=== PATIENT | male | born 1945 | race Two or more races ===

== ENCOUNTER 2017-02-05 19:39 | Inpatient (IN) | payer OTHER ==
[~2017-02-05] VITALS: Ht 172.7 cm; Wt 70.3 kg
[~2017-02-05 19:39] MED LIST: ASPI-807; ATEN-170
--- NOTE | 2017-02-05 19:59 | NUR ---
TO BED 4 A 71 YO MALE BB RA FROM HOME; ALTERED LOC SINCE 1200 TODAY. PATIENT IS AWAKE, ALERT, RESPONSIVE. VSS. NAD NOTED. BREATHING EVEN AND UNLABORED. NONDIAPHORETIC. ONGOING CARDIAC AND VS MONITORING. SAFETY AND COMFORT MEASURES RENDERED.
--- NOTE | 2017-02-05 20:00 | NUR ---
Started a saline lock on the left wrist g18, blood drawn and sent to lab.
--- NOTE | 2017-02-05 20:02 | NUR ---
DR SAGE AT BEDSIDE TO EVAL.
[2017-02-05 20:07] LABS: BASOPHILS % (AUTO) 0.3 % (0.0-2.0); EOSINOPHILS % (AUTO) 0.2 % (0.0-6.0); HEMATOCRIT 25 % (39-51); HEMOGLOBIN 8.6 g/dL (13.5-17.5); LYMPHOCYTES # (AUTO) 0.5 /CMM (0.8-4.8); LYMPHOCYTES % (AUTO) 15.9 % (20.0-44.0); MEAN CORPUSCULAR HEMOGLOBIN 29 PG (26.0-33.0); MEAN CORPUSCULAR HGB CONC 35 g/dl (31.0-36.0); MEAN CORPUSCULAR VOLUME 83 fL (80-96); MONOCYTES # (AUTO) 0.4 /CMM (0.1-1.30); MONOCYTES % (AUTO) 14.1 % (2.0-12.0); NEUTROPHILS % (AUTO) 69.5 % (43.0-81.0); PLATELET COUNT (AUTO) 69 /CMM (150-450); RDW COEFFICIENT OF VARIATION 19.1 (11.5-15.0); RED BLOOD CELL COUNT(AUTO) 3.01 MIL/uL (4.5-6.0); WHITE BLOOD COUNT (AUTO) 2.9 K/uL (4.3-11.0)
[2017-02-05 20:19] LABS: CALCIUM, SERUM 8.1 mg/dL (8.5-10.1); CARBON DIOXIDE 19 mmol/L (21-32); CHLORIDE 98 mmol/L (98-107); CREATININE 0.8 mg/dL (0.6-1.3); GLUCOSE 174 mg/dL (74-106); SODIUM SERUM 129 mmol/L (136-145); UREA NITROGEN, BLOOD 16 mg/dL (7-18)
[2017-02-05 20:25] LABS: ALANINE AMINOTRANSFERASE 10 U/L (12-78); ALKALINE PHOSPHATASE 61 U/L (46-116); ASPARTATE AMINOTRANSFERASE 24 U/L (15-37); BILIRUBIN,DIRECT 0.2 mg/dL (0.0-0.2); BILIRUBIN,TOTAL 0.6 mg/dL (0.2-1.0); TOTAL PROTEIN, SERUM 6.8 g/dL (6.4-8.2)
[2017-02-05 20:27] LABS: TROPONIN I 0.043 ng/mL (0.00-0.056)
[2017-02-05] MEDS ORDERED: IV NS 0.9% 500 ML BAG IV ONE (20:30)
[2017-02-05 20:33] LABS: THYROID STIMULATING HORMONE 0.374 uIU/mL (0.358-3.74)
[2017-02-05 21:05] LABS: BAND % (MANUAL) 2 % (0.0-5.0); LYMPHOCYTES % (MANUAL) 25 % (16-48); MONOCYTES % (MANUAL) 16 % (0-11.0); NEUTROPHILS % (MANUAL) 57 (42-76)
--- NOTE | 2017-02-05 21:13 | NUR ---
CRISTINA CARVALHO, RODRIGO MILLER GLORY HOLE TENDER
--- NOTE | 2017-02-05 21:14 | NUR ---
TELE 324-2
[2017-02-05 21:25] LABS: APPEARANCE,URINE Clear (CLEAR); BILIRUBIN,URINE Negative (NEGATIVE); BLOOD, URINE Moderate Ery/uL (NEGATIVE); COLOR,URINE Yellow (YELLOW); KETONES,URINE 15 (NEGATIVE); LEUKOCYTE ESTERASE ,URINE Negative (NEGATIVE); NITRITE, URINE Negative (NEGATIVE); PROTEIN,URINE Trace mg/dl (NEGATIVE); UGLUCOSE Negative (NEGATIVE); UROBILINOGEN,URINE 0.2 EU/dL (0.2)
[2017-02-05 21:40] LABS: BACTERIA,URINE None seen /HPF (None Seen); SQUAMOUS EPITHELIAL CELL,UR Rare /HPF (None Seen); WBC,URINE 0-2 /HPF (0-3)
[2017-02-05] MEDS ORDERED: PIPERACILLIN /TAZOBACTAM 3.375 G VIAL IV ONE (21:59)
[2017-02-05] MEDS ORDERED: VANCOMYCIN 1 GM in IV D5W 250 ML IV ONE ×2 (22:00→23:30)
[2017-02-05] MEDS ORDERED: PIPERACILLIN /TAZOBACTAM 3.375 G in IV D5W 50 ML IV ONE (22:00)
[2017-02-05] MEDS ORDERED: ASPI-605 PO (22:07)
[2017-02-05] MEDS ORDERED: FERR325T28 PO (22:07)
[2017-02-05] MEDS ORDERED: METF500T7 PO (22:07)
[2017-02-05] MEDS ORDERED: TAMS0.4C34 PO (22:07)
[2017-02-05] MEDS ORDERED: MECL-102 PO (22:07)
[2017-02-05] MEDS ORDERED: NADO20TA12 PO (22:07)
[2017-02-05] MEDS ORDERED: CLOP75TA2 PO (22:07)
[2017-02-05] MEDS ORDERED: FOLI1TAB16 PO (22:07)
--- NOTE | 2017-02-05 22:11 | NUR ---
REPORT GIVEN TO ERVIN CHIANG FOR NICOLA
[2017-02-05 22:30] VITALS: BP 114/62
--- NOTE | 2017-02-05 22:30 | NUR ---
MS CHIANG OPENING NOTES; RECEIVED PT FROM ED. PT IS ON 2LPM VIA NC AND IS SATURATING 89-91%. PT HAS IV ON L WRIST #18G AND IS PATENT AND INTACT AND HAS IV ON R AC AND IS PATENT AND INTACT WELL. 2 FAMILY MEMBERS AT BEDSIDE. WAITING FOR ADMISSION ORDERS AT THIS TIME. CALL LIGHT WITHIN PT'S REACH. URINAL AT BEDSIDE. INSTRUCTED PT HOW TO USE CALL LIGHT. BED KEPT IN LOW, LOCKED POSITION, AND SIDE RAILS X 2 UP. WILL CONTINUE TO MONITOR PT. Addendum: 02/06/17 at 0102 by DAVID RAJAN RN PT IS A/OX 2-3. PT SPEAKS/UNDERSTANDS A LITTLE BIT OF MALDIVIAN. Addendum: 02/06/17 at 0312 by DAVID RAJAN RN PT ALSO CONNECTED TO ZOSYN ANTIBIOTIC AND IS ONGOING. MARIIA SAID THAT VANCO WAS NOT ADMINISTERED IN ED SO WILL HAVE TO ADMINISTER UP HERE ON THE FLOOR. Addendum: 02/06/17 at 0734 by DAVID RAJAN RN PT REFUSES TO HAVE HIS LOWER EXTREMITIES CHECKED AND TO CHANGE IN A GOWN.
--- NOTE | 2017-02-05 22:39 | NUR ---
Transferred patient to tele bed 327-2 via als protcol, no incident noted. Endorsed to Vanessa CHIANG Vancomycin 1gm to be given as ordered by Dr Rivera. Family at bedside.
[2017-02-05] MEDS ORDERED: VANCOMYCIN 1 GM VIAL ONE (23:09)
[2017-02-05] MEDS ORDERED: ACETAMINOPHEN 325 MG TABLET PO PRN (23:30)
[2017-02-05] MEDS ORDERED: ONDANSETRON HCL/PF 4 MG/2 ML VIAL IVP PRN (23:30)
[2017-02-05] MEDS ORDERED: HYDROCODONE/APAP 5/325MG 1 EACH TABLET PO PRN (23:30)
[2017-02-05] MEDS ORDERED: ZOLPIDEM TARTRATE 5 MG TABLET PO PRN (23:30)
[2017-02-05] MEDS ORDERED: DEXTROSE 50%-WATER 50 ML DISP.SYRIN IV PRN (23:30)
[2017-02-05] MEDS ORDERED: MAG HYDROX/AL HYDROX/SIMETH 30 ML UDC PO PRN (23:30)
[2017-02-05] MEDS ORDERED: Z GUARD REMEDY 2 OZ OINT TP PRN (23:30)
[2017-02-06] MEDS: BLOOD SUGAR DIAGNOSTIC 1 EACH STRIP IN SCH ×5 (00:31→21:08)
--- NOTE | 2017-02-06 00:50 | NUR ---
MR CHIANG NOTES; TONY MILLER AT BEDSIDE.
--- NOTE | 2017-02-06 00:58 | NUR ---
MS RN NOTES; BLOOD SUGAR WAS 137 AND PT REFUSED INSULIN. PT IS NOT EATING AT THIS TIME AND IS JUST DRINKING WATER. WILL RECHECK BLOOD SUGAR AGAIN IN THE AM.
[2017-02-06] MEDS: IV NS 0.9% 1,000 ML IV PRN ×2 (03:30→21:02)
[2017-02-06] MEDS: INSULIN REGULAR, HUMAN 100 UNIT/ML 3 ML VIAL SQ PRN (06:25)
--- NOTE | 2017-02-06 06:25 | NUR ---
MS RN NOTES; BLOOD SUGAR THIS AM WAS 99. NO INSULIN WAS ADMINISTERED. WILL CONTINUE TO MONITOR PT.
--- NOTE | 2017-02-06 07:14 | NUR ---
MS RN CLOSING NOTES: ALL NEEDS WERE ATTENDED AND ANTICIPATED FOR. PT IS ON 2LPM VIA NC AND IS TOLERATING WELL. HOB KEPT ELEVATED. PT HAS IV ON L WRIST #18G AND IS BEING INFUSED WITH NS AT 75ML/HR. PT ALSO HAS IV ON R AC AND IS PATENT AND INTACT WELL; CURRENTLY S/L. CALL LIGHT WITHIN PT'S REACH. URINAL AND BEDSIDE COMMODE AT BEDSIDE. INSTRUCTED PT TO USE CALL LIGHT FOR ASSISTANCE. BED KEPT IN LOW, LOCKED POSITION, AND SIDE RAILS X 2 UP. WILL ENDORSE TO AM NURSE FOR NICOLA.
[2017-02-06] MEDS ORDERED: BLOOD SUGAR DIAGNOSTIC 1 EACH STRIP IN SCH (07:30)
--- NOTE | 2017-02-06 07:30 | NUR ---
RN OPENING NOTES RECEIVED PATIENT IN BED RESTING. A/O X 3. ON 2LPM O2 VIA NASAL CANULA, TOLERATING WELL, KEPT HOB ELEVATED. NO ACUTE DISTRESS, NO SOB NOTED. IV SITE INTACT AND PATENT, INFUSING FLUIDS WELL. URINAL AND BEDSIDE COMMODE AT BEDSIDE. BED IN LOW, LOCKED, SIDERAILS UPX2. CALL LIGHT IN REACH. WILL CONTINUE TO MONITOR ACCORDINGLY.
[2017-02-06 08:00] VITALS: BP 134/57
[2017-02-06 08:14] LABS: CALCIUM, SERUM 7.9 mg/dL (8.5-10.1); CARBON DIOXIDE 22 mmol/L (21-32); CHLORIDE 106 mmol/L (98-107); CREATININE 0.8 mg/dL (0.6-1.3); GLUCOSE 99 mg/dL (74-106); MAGNESIUM 2.1 mg/dL (1.8-2.4); PHOSPHORUS 2.8 mg/dL (2.5-4.9); POTASSIUM 3.9 mmol/L (3.5-5.1); SODIUM SERUM 135 mmol/L (136-145); UREA NITROGEN, BLOOD 13 mg/dL (7-18)
[2017-02-06 08:15] VITALS: BP 134/57
[2017-02-06 08:19] LABS: CHOLESTEROL 118 mg/dL (<200); HDL CHOLESTEROL 29 mg/dL (40-60); LDL 79 mg/dL (0-99); TRIGLYCERIDES 101 mg/dL (30-150)
[2017-02-06 08:34] LABS: BASOPHILS % (AUTO) 0.1 % (0.0-2.0); EOSINOPHILS % (AUTO) 0.2 % (0.0-6.0); HEMATOCRIT 23 % (39-51); HEMOGLOBIN 7.9 g/dL (13.5-17.5); LYMPHOCYTES # (AUTO) 0.6 /CMM (0.8-4.8); LYMPHOCYTES % (AUTO) 23.5 % (20.0-44.0); MEAN CORPUSCULAR HEMOGLOBIN 29 PG (26.0-33.0); MEAN CORPUSCULAR HGB CONC 35 g/dl (31.0-36.0); MEAN CORPUSCULAR VOLUME 83 fL (80-96); MONOCYTES # (AUTO) 0.4 /CMM (0.1-1.30); MONOCYTES % (AUTO) 17.5 % (2.0-12.0); NEUTROPHILS # (AUTO) 1.4 /CMM (1.8-8.9); NEUTROPHILS % (AUTO) 58.7 % (43.0-81.0); PLATELET COUNT (AUTO) 53 /CMM (150-450); RDW COEFFICIENT OF VARIATION 20.1 (11.5-15.0); RED BLOOD CELL COUNT(AUTO) 2.73 MIL/uL (4.5-6.0); WHITE BLOOD COUNT (AUTO) 2.4 K/uL (4.3-11.0)
[2017-02-06] MEDS ORDERED: TAMSULOSIN 0.4 MG CAP.SR.24H PO SCH (09:00)
[2017-02-06] MEDS ORDERED: ASPIRIN EC 81 MG TABLET.DR PO SCH (09:00)
[2017-02-06] MEDS ORDERED: CLOPIDOGREL BISULFATE 75 MG TABLET PO SCH (09:00)
[2017-02-06 09:18] LABS: BAND % (MANUAL) 1 % (0.0-5.0); LYMPHOCYTES % (MANUAL) 25 % (16-48); MONOCYTES % (MANUAL) 10 % (0-11.0); NEUTROPHILS % (MANUAL) 64 (42-76)
[2017-02-06] MEDS: MECLIZINE HCL 25 MG TABLET PO SCH ×2 (09:23→17:34)
[2017-02-06] MEDS: FOLIC ACID 1 MG TABLET PO SCH (09:23)
[2017-02-06] MEDS: FERROUS SULFATE (325 MG) 325 MG/TAB TABLET PO SCH (09:23)
[2017-02-06] MEDS: METFORMIN XR 500 MG TAB.SR.24H PO SCH (09:23)
--- NOTE | 2017-02-06 13:00 | NUR ---
RN NOTES IV SITE ON LEFT WRIST LEAKING, DISCONTINUED IV SITE, NO REDNESS, NO SWELLING, NO BLEEDING. STARTED NEW IV ON RIGHT HAND GAUGE 22, INTACT AND PATENT, INFUSING FLUIDS WELL. WILL MONITOR ACCORDINGLY.
--- NOTE | 2017-02-06 15:30 | NUR ---
RN NOTES DR CARNEY AND DR CORONA ON BEDSIDE. MD MADE AWARE OF PATIENT'S COMPLAIN OF BLOOD IN SPUTUM AND BRUISING. PER MD, HOLD PLAVIX AND ASA. WILL CONTINUE TO MONITOR ACCORDINGLY
[2017-02-06 16:00] VITALS: BP 110/53
--- NOTE | 2017-02-06 19:15 | NUR ---
RN OPEN NOTES RECEIVED PATIENT AWAKE IN BED. A/O X3. NO SIGNS OF DISTRESS OR DISCOMFORT. BREATHING EVEN AND UNLABORED. ON 2LPM O2 VIA NC. IV ACCESS IN R HAND WITH NS INFUSING, PATENT AND INTACT, NO SIGNS OF REDNESS OR INFILTRATION. BED IN LOW LOCKED POSITION WITH SIDE RAILS X2. CALL LIGHT WITHIN REACH. WILL CONTINUE TO MONITOR.
--- NOTE | 2017-02-06 19:20 | NUR ---
RN CLOSING NOTES PATIENT IN BED RESTING, HOB ELEVATED AT ALL TIMES. NO ACUTE DISTRESS, NO SOB NOTED. ALL NEEDS ATTENDED AND PROVIDED. KEPT PATIENT SAFE AND COMFORTABLE. BED IN LOCKED, LOW POSITION, SIDERAILS UP X2, CALL LIGHT IN REACH. ENDORSED PATIENT TO NIGHT RN FOR NICOLA.
[2017-02-06 20:00] VITALS: BP 137/58
[2017-02-07] MEDS: BLOOD SUGAR DIAGNOSTIC 1 EACH STRIP IN SCH ×4 (06:24→21:20)
--- NOTE | 2017-02-07 06:57 | NUR ---
RN CLOSING NOTES PATIENT AWAKE IN BED. A/O X3. NO SIGNS OF DISTRESS OR DISCOMFORT. BREATHING EVEN AND UNLABORED. ON 2LPM O2 VIA NC. IV ACCESS IN R HAND WITH NS INFUSING, PATENT AND INTACT, NO SIGNS OF REDNESS OR INFILTRATION. ALL NEEDS MET. NO SIGNIFICANT CHANGES THROUGH THE NIGHT. BED IN LOW LOCKED POSITION WITH SIDE RAILS X2. CALL LIGHT WITHIN REACH. WILL ENDORSE TO AM SHIFT FOR NICOLA.
--- NOTE | 2017-02-07 07:37 | NUR ---
MS RN OPENING NOTE PATIENT IS ALERT AND ORIENTED x3. NO PAIN AT THIS TIME. NO SOB OR DISTRESS NOTED. CALL LIGHT WITHIN REACH. SAFETY MEASURES IMPLEMENTED. ABLE TO COMMUNICATE NEEDS. HAS BEDSIDE COMMODE AND URINAL BY BEDSIDE. BLOOD SUGARS TO BE MONITORED THROUGHOUT SHIFT. ON 2L/MIN OF OXYGEN VIA NASAL CANNULA. IV ON RIGHT HAND INTACT AND PATENT FLUIDS RUNNING AT 75 ML/HR TOLERATING WELL. WILL CONTINUE TO MONITOR
[2017-02-07 07:51] LABS: BASOPHILS % (AUTO) 0.5 % (0.0-2.0); EOSINOPHILS % (AUTO) 0.1 % (0.0-6.0); HEMATOCRIT 23 % (39-51); HEMOGLOBIN 7.8 g/dL (13.5-17.5); LYMPHOCYTES # (AUTO) 0.5 /CMM (0.8-4.8); LYMPHOCYTES % (AUTO) 32.3 % (20.0-44.0); MEAN CORPUSCULAR HEMOGLOBIN 28 PG (26.0-33.0); MEAN CORPUSCULAR HGB CONC 34 g/dl (31.0-36.0); MEAN CORPUSCULAR VOLUME 83 fL (80-96); MONOCYTES # (AUTO) 0.4 /CMM (0.1-1.30); MONOCYTES % (AUTO) 25.1 % (2.0-12.0); NEUTROPHILS # (AUTO) 0.7 /CMM (1.8-8.9); RDW COEFFICIENT OF VARIATION 20.4 (11.5-15.0); RED BLOOD CELL COUNT(AUTO) 2.74 MIL/uL (4.5-6.0)
[2017-02-07 07:59] LABS: WHITE BLOOD COUNT (AUTO) 1.6 K/uL (4.3-11.0)
[2017-02-07 08:00] VITALS: BP 123/67
[2017-02-07 08:00] LABS: PLATELET COUNT (AUTO) 36 /CMM (150-450)
[2017-02-07 08:10] LABS: CALCIUM, SERUM 8.2 mg/dL (8.5-10.1); CARBON DIOXIDE 25 mmol/L (21-32); CHLORIDE 106 mmol/L (98-107); CREATININE 0.8 mg/dL (0.6-1.3); GLUCOSE 93 mg/dL (74-106); MAGNESIUM 1.9 mg/dL (1.8-2.4); PHOSPHORUS 2.5 mg/dL (2.5-4.9); POTASSIUM 3.9 mmol/L (3.5-5.1); SODIUM SERUM 138 mmol/L (136-145); UREA NITROGEN, BLOOD 12 mg/dL (7-18)
[2017-02-07] MEDS: FOLIC ACID 1 MG TABLET PO SCH (08:27)
[2017-02-07] MEDS: FERROUS SULFATE (325 MG) 325 MG/TAB TABLET PO SCH (08:27)
[2017-02-07] MEDS: MECLIZINE HCL 25 MG TABLET PO SCH ×2 (08:27→16:29)
[2017-02-07] MEDS: METFORMIN XR 500 MG TAB.SR.24H PO SCH (08:27)
[2017-02-07] MEDS: LOSARTAN POTASSIUM 50 MG TABLET PO SCH (08:28)
[2017-02-07] MEDS: CARVEDILOL 3.125 MG TABLET PO SCH ×2 (08:28→20:02)
[2017-02-07 09:26] LABS: LYMPHOCYTES % (MANUAL) 34 % (16-48); MONOCYTES % (MANUAL) 21 % (0-11.0); NEUTROPHILS % (MANUAL) 45 (42-76)
--- NOTE | 2017-02-07 10:06 | NUR ---
MS RN NOTE PER PHYSICAL THERAPY, PATIENT NEEDS WALKER, BEDSIDE COMMODE, AND HOME PT. NOTIFIED SOURCE WATER PROTECTION SPECIALIST
[2017-02-07] MEDS ORDERED: TBO-FILGRASTIM 300 MCG/0.5 ML SYRINGE SQ SCH (10:30)
[2017-02-07] MEDS ORDERED: TBO-FILGRASTIM 480 MCG/0.8 ML ML SQ SCH (11:00)
[2017-02-07] MEDS: IV NS 0.9% 1,000 ML IV PRN ×2 (15:11→23:31)
[2017-02-07 16:00] VITALS: BP 95/70
--- NOTE | 2017-02-07 18:13 | NUR ---
MS RN NOTE PATIENT STATED THAT HE WAS HAVING CHEST PAIN. ASSESSED PATIENT AND CHECKED VITALS. BLOOD PRESSURE LOW. SAT PATIENT UP TO SEE IF CHEST PAIN WOULD GET BETTER, PATIENT SAID ITS ABOUT THE SAME. ORDERED STAT EKG, NORMAL SINUS RHYTHM, NOTIFIED MD AND AWAITING FOR ORDERS. PATIENTLY CURRENTLY ON MONITOR. WILL REASSESS PATIENT AND ENDORSE TO CERTIFIED MEDICAL TECHNICIAN ASSISTANT NURSE
--- NOTE | 2017-02-07 18:41 | NUR ---
MS RN CLOSING NOTE PATIENT IS ALERT AND ORIENTED x3. NO PAIN AT THIS TIME. NO SOB OR DISTRESS NOTED. 2L/MIN OF OXYGEN VIA NASAL CANNULA. MONITORING CHEST PAIN, AWAITING ORDERS FROM MD. PATIENT HAS IV FLUIDS RUNNING AT THIS TIME, IV ON RIGHT HAND INTACT AND PATENT, FLUSHES WELL. ABLE TO COMMUNICATE NEEDS, DAUGHTER AND AT BEDSIDE FOR HELP. NEUTROPENIC DIET IN PLACE. BLOOD SUGARS MONITORED THROUGHOUT SHIFT. WALKER AND BEDSIDE COMMODE DELIVERED AND AT BEDSIDE. WILL ENDORSE TO INSURANCE OFFICE MANAGER NURSE FOR CHANGE OF CONDITION.
--- NOTE | 2017-02-07 19:20 | NUR ---
ms/rn opening notes PATIENT IN BED, HOB ELEVATED W/ 3 PILLOWS, FAMILY AT BED SIDE. ON OXYGEN VIA NC AT 3L. MONITORING FOR BLOOD PRESSURE LOW AND WILL CHECK FOR ANY CHANGES. RECEIVED REPORT FORM AM RN REGARDING PAATIENT CONDITION AND WILL CONTINUE MONITORING.RE CHECK MANUAL B/P AT 90/40. PATIENT ALERT X2. CAN FOLLOW SIMPLE COMMANDS AND COOPERATIVE TO CARE.
[2017-02-07 20:00] VITALS: BP 88/46
[2017-02-07] MEDS: TAMSULOSIN 0.4 MG CAP.SR.24H PO SCH (21:08)
--- NOTE | 2017-02-07 21:27 | NUR ---
NS/RN NOTES MD CONTACTED REGARDING LOW B/P AT 88/46, PATIENT ALERT, ORIENTED X3, O2 SAT AT 97 AT 3L VIA NC. NO NEW ORDER BUT CONTINUE MONITORING.
[2017-02-08] VITALS (8 sets, daily range): BP systolic 90–108; BP diastolic 48–58
--- NOTE | 2017-02-08 06:39 | NUR ---
MS/RN CLOSING NOTES PATIENT IN HOB ELEVATED, ALERT, ORIENTED X3, ABLE TO VERBALIZE NEEDS AND ASSISTED TO BEDSIDE COMMODE, VERBALIZED IMPROVE CONDITION. NO PAIN VERBALIZED, SKIN WARM TO TOUCH. ABLE TO SLEEP DURING THE NIGHTS, WILL CONTINUE TO MONITOR,
[2017-02-08 07:28] LABS: BASOPHILS % (AUTO) 0.2 % (0.0-2.0); HEMOGLOBIN 7.1 g/dL (13.5-17.5); LYMPHOCYTES # (AUTO) 0.6 /CMM (0.8-4.8); LYMPHOCYTES % (AUTO) 9.5 % (20.0-44.0); MEAN CORPUSCULAR HEMOGLOBIN 29 PG (26.0-33.0); MEAN CORPUSCULAR HGB CONC 35 g/dl (31.0-36.0); MEAN CORPUSCULAR VOLUME 83 fL (80-96); MONOCYTES # (AUTO) 0.6 /CMM (0.1-1.30); MONOCYTES % (AUTO) 9.3 % (2.0-12.0); RDW COEFFICIENT OF VARIATION 19.6 (11.5-15.0); RED BLOOD CELL COUNT(AUTO) 2.43 MIL/uL (4.5-6.0); WHITE BLOOD COUNT (AUTO) 6.2 K/uL (4.3-11.0)
[2017-02-08 07:32] LABS: HEMATOCRIT 20 % (39-51)
[2017-02-08 07:40] LABS: PLATELET COUNT (AUTO) 25 /CMM (150-450)
--- NOTE | 2017-02-08 07:40 | NUR ---
MS RN OPENING NOTE PATIENT IS ALERT AND ORIENTED x3. NO PAIN AT THIS TIME. NO SOB OR DISTRESS NOTED. CALL LIGHT WITHIN REACH. SAFETY MEASURES IMPLEMENTED. ABLE TO COMMUNICATE NEEDS. HAS BEDSIDE COMMODE AND WALKER THAT WAS DELIVERED YESTERDAY BY BEDSIDE. HAS IV ON RIGHT HAND INTACT AND PATENT NO REDNESS OR SWELLING NOTED. IV FLUIDS RUNNING AT 75 ML/HR, TOLERATING WELL. BLOOD SUGARS TO BE MONITORED. WILL CONTINUE TO MONITOR THROUGHOUT SHIFT Addendum: 02/08/17 at 0856 by SUMANTH LERNER RN ON 2L/MIN OF OXYGEN VIA NASAL CANNULA, TOLERATING WELL.
[2017-02-08 07:42] LABS: INR 1.17 (0.87-1.13); PROTHROMBIN TIME 12.2 SECS (9.5-12.7)
--- NOTE | 2017-02-08 07:47 | NUR ---
MS RN NOTE RECEIVED CALL FROM LAB, PATIENT HAS CRITICAL LAB FOR PLT COUNT-[id number]. AWARE
[2017-02-08 07:58] LABS: CALCIUM, SERUM 7.8 mg/dL (8.5-10.1); CARBON DIOXIDE 22 mmol/L (21-32); CHLORIDE 105 mmol/L (98-107); CREATININE 0.8 mg/dL (0.6-1.3); GLUCOSE 97 mg/dL (74-106); MAGNESIUM 1.9 mg/dL (1.8-2.4); PHOSPHORUS 3.2 mg/dL (2.5-4.9); POTASSIUM 3.9 mmol/L (3.5-5.1); SODIUM SERUM 135 mmol/L (136-145); UREA NITROGEN, BLOOD 12 mg/dL (7-18)
[2017-02-08 08:22] LABS: BAND % (MANUAL) 15 % (0.0-5.0); LYMPHOCYTES % (MANUAL) 7 % (16-48); METAMYELOCYTES % 1 % (0-0); MONOCYTES % (MANUAL) 2 % (0-11.0); NEUTROPHILS % (MANUAL) 75 (42-76)
[2017-02-08] MEDS: CARVEDILOL 3.125 MG TABLET PO SCH ×2 (08:26→20:47)
[2017-02-08] MEDS: METFORMIN XR 500 MG TAB.SR.24H PO SCH (08:26)
[2017-02-08] MEDS: FOLIC ACID 1 MG TABLET PO SCH (08:26)
[2017-02-08] MEDS: FERROUS SULFATE (325 MG) 325 MG/TAB TABLET PO SCH (08:26)
[2017-02-08] MEDS: LOSARTAN POTASSIUM 50 MG TABLET PO SCH (08:26)
[2017-02-08] MEDS: BLOOD SUGAR DIAGNOSTIC 1 EACH STRIP IN SCH ×4 (08:26→20:54)
[2017-02-08] MEDS: MECLIZINE HCL 25 MG TABLET PO SCH ×2 (08:26→16:41)
--- NOTE | 2017-02-08 13:50 | NUR ---
MS RN NOTE PATIENT IS TO RECEIVE ONE UNIT OF BLOOD. RECEIVED CONSENT FROM DAUGHTER TONY WITH ANOTHER NURSE, EXPLAINED RISKS AND BENEFITS OF TRANSFUSION AND ALSO RECEIVED CONSENT. AWAITING FOR TYPE AND CROSS MATCH. WILL GIVE BLOOD WHEN READY
[2017-02-08] MEDS ORDERED: diphenhydrAMINE HCL 50 MG/ML VIAL IV ONE (14:00)
--- NOTE | 2017-02-08 18:41 | NUR ---
MS RN CLOSING NOTE PATIENT IS ALERT AND ORIENTED x3. NO PAIN AT THIS TIME. NO SOB OR DISTRESS NOTED. 2L/MIN OF OXYGEN VIA NASAL CANNULA. ABLE TO COMMUNICATE NEEDS. AT BEDSIDE. HAS BSC AND AMBULATES WITH WALKER WITH STANDBY ASSIST. IV ON RIGHT HAND AND LEFT FOREARM INTACT AND PATENT NO REDNESS OR SWELLING NOTED. S/P BLOOD TRANSFUSION 1 UNIT GIVEN. NO ADVERSE REACTION NOTED OR STATED. ALL DUE MEDICATIONS GIVEN ORDERED BY MD. CALL LIGHT WITHIN REACH AT ALL TIMES. SAFETY MEASURES IMPLEMENTED. WILL ENDORSE TO JUNCTION MAKER NURSE FOR NICOLA
[2017-02-08] MEDS: FUROSEMIDE 20 MG/2 ML VIAL IV PRN ×2 (18:44→18:54)
[2017-02-08] MEDS: IV NS 0.9% 1,000 ML IV PRN (18:54)
--- NOTE | 2017-02-08 19:23 | NUR ---
MS/RN OPENING NOTES PATIENT AWAKE, ALERT, ABLE TO DO W/ ASSISTANCE SOME ADL ,FAMILY AT BEDSIDE. AM RN HAVE PROVIDE MEDICATION S/P BLOOD TRANSFUSION OF LASIX AND WILL MONITOR FOR S/P 1 UNIT PRBC TRANSFUSED THIS PM. SKIN INTACT AND DRY. WILL CONTINUE TO MONITOR.
[2017-02-08] MEDS: TAMSULOSIN 0.4 MG CAP.SR.24H PO SCH (21:01)
[2017-02-09] MEDS: BLOOD SUGAR DIAGNOSTIC 1 EACH STRIP IN SCH ×4 (07:01→20:06)
--- NOTE | 2017-02-09 07:05 | NUR ---
s/rn notes Patient able to sleep during the night. Respirations even and unlabored. Cooperative to care. Calllights within reach. bed in lock position. patient uses commode and had s/p blood transfusion. Monitoring for any s/s of chnages,
--- NOTE | 2017-02-09 07:43 | NUR ---
MS RN: INITIAL NOTE RECEIVED PT A/OX3. ON 2L NC. NO SOB NOTED. NO PAIN NOTED. NO DISTRESS NOTED. USES BEDSIDE COMMODE. AMBULATES WITH ASSISTANCE. [facility]. R HAND #22 RUNNING NS AT 40ML/HR. SITE CLEAR AND PATENT. RESTING COMFORTABLY IN BED. CALL LIGHT WITHIN REACH.
[2017-02-09 07:58] LABS: BASOPHILS % (AUTO) 0.3 % (0.0-2.0); EOSINOPHILS % (AUTO) 0.2 % (0.0-6.0); HEMATOCRIT 25 % (39-51); HEMOGLOBIN 8.7 g/dL (13.5-17.5); LYMPHOCYTES # (AUTO) 0.6 /CMM (0.8-4.8); MEAN CORPUSCULAR HEMOGLOBIN 30 PG (26.0-33.0); MEAN CORPUSCULAR HGB CONC 35 g/dl (31.0-36.0); MEAN CORPUSCULAR VOLUME 85 fL (80-96); MONOCYTES # (AUTO) 0.5 /CMM (0.1-1.30); MONOCYTES % (AUTO) 7.7 % (2.0-12.0); NEUTROPHILS # (AUTO) 4.9 /CMM (1.8-8.9); NEUTROPHILS % (AUTO) 81.8 % (43.0-81.0); RDW COEFFICIENT OF VARIATION 19.4 (11.5-15.0); RED BLOOD CELL COUNT(AUTO) 2.95 MIL/uL (4.5-6.0)
[2017-02-09 08:00] VITALS: BP 103/59
[2017-02-09] MEDS: FOLIC ACID 1 MG TABLET PO SCH (08:12)
[2017-02-09] MEDS: METFORMIN XR 500 MG TAB.SR.24H PO SCH (08:12)
[2017-02-09] MEDS: MECLIZINE HCL 25 MG TABLET PO SCH ×2 (08:12→17:19)
[2017-02-09] MEDS: FERROUS SULFATE (325 MG) 325 MG/TAB TABLET PO SCH (08:12)
[2017-02-09] MEDS: LOSARTAN POTASSIUM 50 MG TABLET PO SCH (08:12)
[2017-02-09 08:13] LABS: CALCIUM, SERUM 8.1 mg/dL (8.5-10.1); CARBON DIOXIDE 25 mmol/L (21-32); CHLORIDE 106 mmol/L (98-107); CREATININE 0.9 mg/dL (0.6-1.3); GLUCOSE 95 mg/dL (74-106); PHOSPHORUS 3.1 mg/dL (2.5-4.9); POTASSIUM 3.8 mmol/L (3.5-5.1); SODIUM SERUM 138 mmol/L (136-145); UREA NITROGEN, BLOOD 8 mg/dL (7-18)
[2017-02-09] MEDS: CARVEDILOL 3.125 MG TABLET PO SCH ×2 (08:13→20:05)
[2017-02-09 08:21] LABS: PLATELET COUNT (AUTO) 25 /CMM (150-450)
[2017-02-09 09:22] LABS: BAND % (MANUAL) 2 % (0.0-5.0); LYMPHOCYTES % (MANUAL) 9 % (16-48); MONOCYTES % (MANUAL) 8 % (0-11.0); NEUTROPHILS % (MANUAL) 81 (42-76)
--- NOTE | 2017-02-09 18:52 | NUR ---
MS RN: CLOSING NOTE A/OX3. ON 2 L NC SATING AT 98%. NO DISTRESS NOTED. NO PAIN NOTED. TOOK ALL MEDICATIONS ON TIME. NO ADVERSE REACTIONS NOTED. R HAND #22 IV RUNNING NS AT 40ML/HR . L FA IV HEP LOCK. IV SITE PATENT. ON [facility] DIET. USES BEDSIDE COMMODE. AMBULATED WITH MINIMAL ASSIST. RESTING COMFORTABLY IN BED. CALL LIGHT WITHIN REACH.
--- NOTE | 2017-02-09 19:50 | NUR ---
RN INITIAL NOTES: RECEIVED REPORT FROM FERNANDA RN, PT IN BED, AWAKE, A/O X3 SINHALA SPEAKING, UNDERSTAND BASIC TONGAN, ON 2LVIA NC RESPIRATION EVEN AND UNLABORED, DENIES ANY PAIN OR DISCOMFORT AT THIS TIME, IV ACCESS PATENT AND FLUSHING WELL, INFUSING WITH NS AT 40ML/HR. SAFETY PRECAUTIONS FOR FALL INITIATED CALL LIGHT IN REACH, WILL CONTINUE TO MONITOR
[2017-02-09] MEDS: IV NS 0.9% 1,000 ML IV PRN (19:58)
[2017-02-09 20:00] VITALS: BP 109/59
[2017-02-09] MEDS: TAMSULOSIN 0.4 MG CAP.SR.24H PO SCH (20:03)
[2017-02-09] MEDS: INSULIN REGULAR, HUMAN 100 UNIT/ML 3 ML VIAL SQ PRN (20:06)
--- NOTE | 2017-02-09 20:07 | NUR ---
RN NOTES: PT REQUESTED TO TAKE ALL HIS MEDICATION EARLY HE STATED HE WILL SLEEP EARLY BEFORE 2100, PT FLOMAX ADMINISTERED, COREG HELD DUE TO LOW BP, AND PT ALSO REFUSED FOR IT HE STATED ACCORDING TO THE DOCTOR HE WAS TOLD THAT THE BP MEDS ARE TAKEN OFF HIS LIST HIS BP ALWAYS ON LOW SIDE, EXPLAIN TO THE PT ABOUT THE PARAMETER OON THE EMAR, PT UNDERSTAND, I TALKED TO PT'S DAUGHTER TO EXPLAIN ABOUT THE COREG AND PARAMETER, AND THEY DECIDED NOT TO TAKE THE MEDICINE THEY CONSIDERED THE BP ALREADY ON LOW SIDE, ALSO CHECKED PT'S BLOOD SUGAR AND REVEAL 99, NO INSULIN COVERAGE GIVEN PER SLIDING SCALE, WILL MONITOR FOR ANY S/S OF HYPOGLYCEMIA
[2017-02-09 20:17] VITALS: BP 109/59
[2017-02-10] MEDS: INSULIN REGULAR, HUMAN 100 UNIT/ML 3 ML VIAL SQ PRN (06:21)
[2017-02-10] MEDS: BLOOD SUGAR DIAGNOSTIC 1 EACH STRIP IN SCH ×2 (06:21→12:00)
--- NOTE | 2017-02-10 06:22 | NUR ---
ACCU CHECK: BLOOD SUGAR CHECK AND REVEAL 89, NO INSULIN COVERAGE GIVEN PER SLIDING SCALE, WILL CONTINUE MONITORING PT FOR ANY S/S OF HYPER OR HYPOGLYCEMIA
--- NOTE | 2017-02-10 06:44 | NUR ---
RN CLOSING NOTES: PT IN BED, AWAKE, REMAINS A/O X3, ON 2L VIA NC, RESPIRATION EVEN AND UNLABORED, DENIES ANY PAIN OR DISCOMFORT. IV ACCESS REMAINS PATENT AND FLUSHING WELL, INFUSING WITH NS AT 40ML/HR. FOR DC PLANNING. EXIT CARE COMPLETED. VS REMAINS STABLE, NEEDS ATTENDED, WILL ENDORSE TO DAY RN FOR NICOLA.
--- NOTE | 2017-02-10 07:45 | NUR ---
MS RN: INITIAL NOTE RECEIVED PT A/OX3. ON 2L NC SATING AT 92%. NO DISTRESS NOTED. NO PAIN NOTED. NO SOB NOTED. AMBULATORY WITH MINIMAL ASSIST. USES BEDSIDE COMMODE. R HAND #22 RUNNING NS AT 40ML/HR. SITE CLEAR AND PATENT. L FA #20 HEP LOCK. RESTING COMFORTABLY IN BED. CALL LIGHT WITHIN REACH.
[2017-02-10 08:00] VITALS: BP 98/68
[2017-02-10 08:35] VITALS: BP 98/68
[2017-02-10] MEDS: MECLIZINE HCL 25 MG TABLET PO SCH (08:35)
[2017-02-10] MEDS: FOLIC ACID 1 MG TABLET PO SCH (08:35)
[2017-02-10] MEDS: CARVEDILOL 3.125 MG TABLET PO SCH (08:35)
[2017-02-10] MEDS: FERROUS SULFATE (325 MG) 325 MG/TAB TABLET PO SCH (08:35)
[2017-02-10] MEDS: LOSARTAN POTASSIUM 50 MG TABLET PO SCH (08:35)
[2017-02-10] MEDS: METFORMIN XR 500 MG TAB.SR.24H PO SCH (08:35)
[2017-02-10 09:20] LABS: BASOPHILS % (AUTO) 0.1 % (0.0-2.0); HEMATOCRIT 24 % (39-51); HEMOGLOBIN 8.2 g/dL (13.5-17.5); LYMPHOCYTES # (AUTO) 0.7 /CMM (0.8-4.8); LYMPHOCYTES % (AUTO) 20.3 % (20.0-44.0); MEAN CORPUSCULAR HEMOGLOBIN 29 PG (26.0-33.0); MEAN CORPUSCULAR HGB CONC 34 g/dl (31.0-36.0); MEAN CORPUSCULAR VOLUME 85 fL (80-96); MONOCYTES # (AUTO) 0.5 /CMM (0.1-1.30); MONOCYTES % (AUTO) 14.2 % (2.0-12.0); NEUTROPHILS # (AUTO) 2.1 /CMM (1.8-8.9); NEUTROPHILS % (AUTO) 65.4 % (43.0-81.0); RDW COEFFICIENT OF VARIATION 19.6 (11.5-15.0); RED BLOOD CELL COUNT(AUTO) 2.85 MIL/uL (4.5-6.0); WHITE BLOOD COUNT (AUTO) 3.3 K/uL (4.3-11.0)
[2017-02-10 09:29] LABS: PLATELET COUNT (AUTO) 33 /CMM (150-450)
[2017-02-10 09:42] LABS: BAND % (MANUAL) 4 % (0.0-5.0); LYMPHOCYTES % (MANUAL) 22 % (16-48); MONOCYTES % (MANUAL) 12 % (0-11.0); NEUTROPHILS % (MANUAL) 62 (42-76)
--- NOTE | 2017-02-10 14:16 | NUR ---
MS RN: DISCHARGE NOTE PT D/C HOME WITH [facility] FOR IV FLUIDS. PT TOOK ALL MEDICATIONS ON TIME. NO ADVERSE REACTIONS NOTED. NO PAIN NOTED. NO SOB NOTED. VS STABLE UPON D/C. ON ROOM AIR SATING AT 94%. PICTURES TAKEN OF NECK REDNESS AND L/ R BLE BRUISES. R HAND IV AND L FA IV REMOVED. SITE CLEAR. NO REDNESS OR INFILTRATION NOTED. ALL D/C INFORMATION PROVIDED TO DAUGHTER TONY AND PATIENT. ALL D/C PAPERS SIGNED AND COPIES PROVIDED TO FAMILY. ALL BELONGINGS ACCOUNTED FOR. LEFT ON WHEELCHAIR VIA PRIVATE CAR.
[2017-02-11] MEDS ORDERED: CLOPIDOGREL BISULFATE 75 MG TABLET ONE (13:35)
== END 2017-02-10 14:10 | disposition home health service (06) | DRG 52 ==
LOC: ER 19:41 → TELE 21:44 → MED 02-06 00:28
PROVIDERS: ADMIT Nurse Practitioner Acute Care; ATTEND Nurse Practitioner Acute Care
PROC: 30233N1 Transfusion of Nonautologous Red Blood Cells into Peripheral Vein, Percutaneous Approach (ICD-10-PCS; principal; 2017-02-08)
DX: G92 Toxic encephalopathy (principal); E44.0 Moderate protein-calorie malnutrition; D61.810 Antineoplastic chemotherapy induced pancytopenia; E86.0 Dehydration; C34.90 Malignant neoplasm of unspecified part of unspecified bronchus or lung; E87.1 Hypo-osmolality and hyponatremia; E88.09 Other disorders of plasma-protein metabolism, not elsewhere classified; D69.59 Other secondary thrombocytopenia; F03.90 Unspecified dementia, unspecified severity, without behavioral disturbance, psychotic disturbance, mood disturbance, and anxiety; I10 Essential (primary) hypertension; T45.1X5A Adverse effect of antineoplastic and immunosuppressive drugs, initial encounter; Y92.009 Unspecified place in unspecified non-institutional (private) residence as the place of occurrence of the external cause; E78.5 Hyperlipidemia, unspecified; I25.10 Atherosclerotic heart disease of native coronary artery without angina pectoris; I73.9 Peripheral vascular disease, unspecified; N40.0 Benign prostatic hyperplasia without lower urinary tract symptoms; Z87.891 Personal history of nicotine dependence; Z68.23 Body mass index [BMI] 23.0-23.9, adult; Z98.61 Coronary angioplasty status; E11.9 Type 2 diabetes mellitus without complications; Z98.62 Peripheral vascular angioplasty status; R04.0 Epistaxis; Z79.82 Long term (current) use of aspirin; T14.8XXA Other injury of unspecified body region, initial encounter; Z79.84 Long term (current) use of oral hypoglycemic drugs
CPT/HCPCS: 36415; 70450-TC; 71010-TC; 80048-TC; 80061-TC; 80076-TC; 81000-TC; 82962-TC; 83735-TC; 84100-TC; 84443-TC; 84484-TC; 85025-TC; 85610-TC; 85730-TC; 86850-TC; 86921-TC; 87040-TC; 87081-TC; 87086-TC; 97116-TC; 97530-TC; A4606; J1200; J1442; J1447; J1815; J1940; J2405; J2543; J3370; J7030; J7040; J7050; J7060; J8597; P9016-BL; Z7610

== ENCOUNTER 2017-02-11 11:31 | Inpatient (IN) | payer OTHER ==
[~2017-02-11] VITALS: Ht 180.3 cm; Wt 62.6 kg
[2017-02-11] VITALS (11 sets, daily range): BP systolic 117–157; BP diastolic 45–124
[~2017-02-11 11:31] MED LIST changes: +ASPI-605 PO; -ATEN-170; +CLOP75TA2 PO; +FERR325T28 PO; +FOLI1TAB16 PO; +MECL-102 PO; +METF500T7 PO; +TAMS0.4C34 PO
--- NOTE | 2017-02-11 11:31 | NUR ---
[id number] FROM HOME: SUBSTERNAL CHEST PAIN, ASA 162 + NITRO 2 GIVEN IN FIELD BY EMS WITH HELP, NAD NOTED, VSS, PUT ON HOSPITAL GOWN AND MONITOR. WAITING FOR MD NOVAK.
[2017-02-11 11:54] LABS: BASOPHILS # (AUTO) 0.1 /CMM (0.0-0.2); EOSINOPHILS % (AUTO) 0.2 % (0.0-6.0); HEMATOCRIT 27 % (39-51); HEMOGLOBIN 9.1 g/dL (13.5-17.5); LYMPHOCYTES # (AUTO) 0.8 /CMM (0.8-4.8); LYMPHOCYTES % (AUTO) 29.4 % (20.0-44.0); MEAN CORPUSCULAR HEMOGLOBIN 29 PG (26.0-33.0); MEAN CORPUSCULAR HGB CONC 34 g/dl (31.0-36.0); MEAN CORPUSCULAR VOLUME 85 fL (80-96); MONOCYTES # (AUTO) 0.1 /CMM (0.1-1.30); MONOCYTES % (AUTO) 1.9 % (2.0-12.0); NEUTROPHILS # (AUTO) 1.7 /CMM (1.8-8.9); NEUTROPHILS % (AUTO) 64.5 % (43.0-81.0); PLATELET COUNT (AUTO) 67 /CMM (150-450); RDW COEFFICIENT OF VARIATION 18.1 (11.5-15.0); RED BLOOD CELL COUNT(AUTO) 3.11 MIL/uL (4.5-6.0); WHITE BLOOD COUNT (AUTO) 2.7 K/uL (4.3-11.0)
[2017-02-11] MEDS ORDERED: IV NS 0.9% 500 ML BAG IV ONE ×2 (12:00→13:00)
--- NOTE | 2017-02-11 12:00 | NUR ---
LUMITE INJECTOR AT BEDSIDE
[2017-02-11 12:03] LABS: CALCIUM, SERUM 8.6 mg/dL (8.5-10.1); CARBON DIOXIDE 17 mmol/L (21-32); CHLORIDE 98 mmol/L (98-107); CREATININE 1.3 mg/dL (0.6-1.3); GLUCOSE 216 mg/dL (74-106); POTASSIUM 3.8 mmol/L (3.5-5.1); SODIUM SERUM 132 mmol/L (136-145); UREA NITROGEN, BLOOD 13 mg/dL (7-18)
[2017-02-11 12:06] LABS: INR 1.13 (0.87-1.13); PROTHROMBIN TIME 11.8 SECS (9.5-12.7)
[2017-02-11 12:09] LABS: ALANINE AMINOTRANSFERASE 10 U/L (12-78); ALBUMIN 3.1 g/dL (3.4-5.0); ALKALINE PHOSPHATASE 68 U/L (46-116); ASPARTATE AMINOTRANSFERASE 22 U/L (15-37); BILIRUBIN,DIRECT 0.2 mg/dL (0.0-0.2); BILIRUBIN,TOTAL 0.5 mg/dL (0.2-1.0); TOTAL PROTEIN, SERUM 6.9 g/dL (6.4-8.2)
[2017-02-11 12:11] LABS: TROPONIN I 0.186 ng/mL (0.00-0.056)
--- NOTE | 2017-02-11 12:27 | NUR ---
CALLED COCOA ROASTER ACCOUNT CONTACT ASSOCIATE, WAS PAGED.
--- NOTE | 2017-02-11 12:29 | NUR ---
DR WANG PLACEMENT SPECIALIST CALLED, ON THE PHONE WITH DR CAMPA.
--- NOTE | 2017-02-11 12:33 | NUR ---
CALLED RICARDO NINA [phone]
[2017-02-11] MEDS ORDERED: CEFTRIAXONE 1GM BAG (ER ONLY) 50 ML IV ONE (12:50)
[2017-02-11] MEDS ORDERED: CEFTRIAXONE 1GM BAG (ER ONLY) 1 GM/50 ML PIGGYBACK IV ONE (13:00)
[2017-02-11] MEDS ORDERED: IV NS 0.9% 1,000 ML IV PRN (13:09)
[2017-02-11 13:27] LABS: BAND % (MANUAL) 6 % (0.0-5.0); LYMPHOCYTES % (MANUAL) 13 % (16-48); MONOCYTES % (MANUAL) 5 % (0-11.0); NEUTROPHILS % (MANUAL) 72 (42-76); REACTIVE LYMPHOCYTES 4 % (0-0)
[2017-02-11] MEDS ORDERED: DEXTROSE 50%-WATER 50 ML DISP.SYRIN IV PRN (13:30)
[2017-02-11] MEDS ORDERED: Z GUARD REMEDY 2 OZ OINT TP PRN (13:30)
[2017-02-11] MEDS ORDERED: HYDROCODONE/APAP 5/325MG 1 EACH TABLET PO PRN (13:30)
[2017-02-11] MEDS ORDERED: CLOPIDOGREL BISULFATE 75 MG TABLET PO ONE (13:30)
[2017-02-11] MEDS ORDERED: MAGNESIUM HYDROXIDE 30 ML UDC PO PRN (13:30)
[2017-02-11] MEDS ORDERED: ONDANSETRON HCL/PF 4 MG/2 ML VIAL IVP PRN (13:30)
[2017-02-11] MEDS ORDERED: ZOLPIDEM TARTRATE 5 MG TABLET PO PRN (13:30)
[2017-02-11] MEDS ORDERED: NITROGLYCERIN 0.4 MG/TAB BOTTLE SL PRN (13:30)
[2017-02-11] MEDS ORDERED: MAG HYDROX/AL HYDROX/SIMETH 30 ML UDC PO PRN (13:30)
[2017-02-11] MEDS ORDERED: ACETAMINOPHEN 325 MG TABLET PO PRN (13:30)
[2017-02-11] MEDS ORDERED: MORPHINE SULFATE INJ 2 MG/ML DISP.SYRIN IV PRN (13:30)
--- NOTE | 2017-02-11 14:28 | NUR ---
report given to rnkevin for admission.
--- NOTE | 2017-02-11 14:56 | NUR ---
patient transported to icu, 251 via acls protocol. RNkevin to provide roby.
--- NOTE | 2017-02-11 15:00 | NUR ---
BELLHOP NOTE Admitted 71 year old male patient with dx of NSTEMI from ER via gurney. Patient alert and oriented x4 but main language is Belarusian so daughter did most of the translating. Daughter is very involved in her father's care. She told me he was released from [facility] yesterday. Last night he complained of chest pain and his gave him Hiltons. This morning he was short of breath so they brought him back to the ER. Patient has lung cancer and has been receiving chemotherapy. Sinus tachycardia 100 bpm on admission. Patient is on 3 liters nasal cannula. Lung sounds are diminished. Patient continent of urine and stool. He is able to position himself in bed and can move all extremities. However, according to his daughter, he needs a walker to ambulate. There was some redness on sacral area and right neck. Photos were taken. There is also some bruising on left forearm. Patient is a full code.
--- NOTE | 2017-02-11 15:17 | NUR ---
LABORATORY SECRETARY NOTE Made Dr. Ferny Gill aware for LA 8.2 now 3.1 and only received 1L NS bolus from ER, per MD patient does not need for he is not septic.
--- NOTE | 2017-02-11 17:00 | NUR ---
HOME HEALTH REGISTERED NURSE NOTE S/E by Dr. June, daughter at bedside, discussed re: the POC. Per Dr. june, ok for the Lovenox as long onco is ok with it. Spoke with Dr. Camp via phone and said fine with Lovenox and Plavix. Dr. Camp said she will come see patient.
[2017-02-11] MEDS: MECLIZINE HCL 25 MG TABLET PO SCH (17:05)
[2017-02-11] MEDS: ENOXAPARIN SODIUM 40 MG/0.4 ML DISP.SYRIN SQ SCH (17:06)
[2017-02-11] MEDS: FOLIC ACID 1 MG TABLET PO SCH (17:06)
[2017-02-11] MEDS: BLOOD SUGAR DIAGNOSTIC 1 EACH STRIP IN SCH ×2 (17:06→22:05)
[2017-02-11] MEDS: METOPROLOL TARTRATE 50 MG TABLET PO SCH ×3 (17:07→23:22)
--- NOTE | 2017-02-11 17:34 | NUR ---
Patient and daughter refused Metoprolol 25 mg because they were afraid it would drop his BP too low. BP at this time, 125/60.
[2017-02-11] MEDS ORDERED: CEFTRIAXONE 1 G in IV D5W 50 ML IV SCH (18:00)
[2017-02-11] MEDS: methylPREDNISolone SOD SUCC 125 MG/2ML VIAL IV SCH (18:57)
--- NOTE | 2017-02-11 20:30 | NUR ---
HOSPITAL MANAGER NOTES RECEIVED PT IN BED, AWAKE, A/O X4. VIETNAMESE SPEAKING, UNDERSTANDS KOSOVAN. TELE READS SR AT 90 BPM. ON O2 VIA NC AT 2 LPM, ELDER WELL. ABLE TO USE BSC WITH STANDBY ASSISTANCE. LFA 20G IV RUNNING NS AT 75 ML/HR. DENIES ANY PAIN. ALL NEEDS MET. PT TRANSPORTED TO RADIOLOGY FOR CT W/O CONTRAST OF THE CHEST WITH TRANSPORT MONITOR AND RN. CALL LIGHT WITHIN REACH, SIDE RAILS X2.
--- NOTE | 2017-02-11 22:00 | NUR ---
GROUND SERVICE EQUIPMENT MECHANIC NOTES PT REFUSED SUBQ 2 UNIT INSULIN COVERAGE FOR BG OF 138 MG/DL. NEXT BG CHECK IN AM.
[2017-02-11] MEDS: INSULIN REGULAR, HUMAN 100 UNIT/ML 3 ML VIAL SQ PRN (22:06)
[2017-02-12] VITALS (25 sets, daily range): BP systolic 111–156; BP diastolic 53–122
--- NOTE | 2017-02-12 02:00 | NUR ---
GUEST REQUEST RUNNER NOTES PT IS ASLEEP, APPEARS COMFORTABLE WITH NONLABORED BREATHING. ABLE TO USE BSC WITH STANDBY ASSISTANCE. DENIES PAIN AT THIS TIME.
--- NOTE | 2017-02-12 04:30 | NUR ---
DROP HAMMER OPERATOR HELPER NOTES PT REFUSED TO LINEN CHANGE AND BED BATH. ALL OTHER NEEDS MET.
[2017-02-12 04:57] LABS: BASOPHILS % (AUTO) 0.6 % (0.0-2.0); EOSINOPHILS % (AUTO) 0.1 % (0.0-6.0); HEMATOCRIT 25 % (39-51); HEMOGLOBIN 8.8 g/dL (13.5-17.5); LYMPHOCYTES # (AUTO) 0.5 /CMM (0.8-4.8); MEAN CORPUSCULAR HEMOGLOBIN 30 PG (26.0-33.0); MEAN CORPUSCULAR HGB CONC 35 g/dl (31.0-36.0); MEAN CORPUSCULAR VOLUME 85 fL (80-96); MONOCYTES % (AUTO) 3.7 % (2.0-12.0); NEUTROPHILS # (AUTO) 0.6 /CMM (1.8-8.9); NEUTROPHILS % (AUTO) 49.6 % (43.0-81.0); PLATELET COUNT (AUTO) 76 /CMM (150-450); RDW COEFFICIENT OF VARIATION 20.3 (11.5-15.0)
[2017-02-12 05:01] LABS: CHLORIDE 105 mmol/L (98-107); POTASSIUM 4.4 mmol/L (3.5-5.1); SODIUM SERUM 138 mmol/L (136-145)
[2017-02-12 05:02] LABS: CALCIUM, SERUM 8.3 mg/dL (8.5-10.1); CARBON DIOXIDE 22 mmol/L (21-32); CREATININE 0.9 mg/dL (0.6-1.3); GLUCOSE 164 mg/dL (74-106); PHOSPHORUS 4.4 mg/dL (2.5-4.9); UREA NITROGEN, BLOOD 11 mg/dL (7-18)
[2017-02-12 05:15] LABS: WHITE BLOOD COUNT (AUTO) 1.1 K/uL (4.3-11.0)
[2017-02-12 05:59] LABS: B-TYPE NATRIURETIC PEPTIDE < 5 PG/ML (0-125)
[2017-02-12] MEDS: METOPROLOL TARTRATE 50 MG TABLET PO SCH ×3 (06:02→18:00)
[2017-02-12 06:16] LABS: LYMPHOCYTES % (MANUAL) 46 % (16-48); MONOCYTES % (MANUAL) 4 % (0-11.0); NEUTROPHILS % (MANUAL) 50 (42-76)
[2017-02-12] MEDS: PANTOPRAZOLE 40 MG TABLET.DR PO SCH (08:03)
[2017-02-12] MEDS: TAMSULOSIN 0.4 MG CAP.SR.24H PO SCH (08:04)
[2017-02-12] MEDS: FOLIC ACID 1 MG TABLET PO SCH (08:04)
[2017-02-12] MEDS: CLOPIDOGREL BISULFATE 75 MG TABLET PO SCH (08:04)
[2017-02-12] MEDS: MECLIZINE HCL 25 MG TABLET PO SCH ×2 (08:04→17:06)
[2017-02-12] MEDS: FERROUS SULFATE (325 MG) 325 MG/TAB TABLET PO SCH (08:04)
[2017-02-12] MEDS: methylPREDNISolone SOD SUCC 125 MG/2ML VIAL IV SCH (08:05)
[2017-02-12] MEDS: INSULIN REGULAR, HUMAN 100 UNIT/ML 3 ML VIAL SQ PRN ×5 (08:06→21:20)
[2017-02-12] MEDS: BLOOD SUGAR DIAGNOSTIC 1 EACH STRIP IN SCH ×4 (08:06→21:14)
[2017-02-12] MEDS: VALSARTAN 80 MG TABLET PO SCH (08:23)
--- NOTE | 2017-02-12 09:02 | NUR ---
Patient doing well. No c/o pain. Saturating well on 2 liters nasal cannula. Appetite was better this morning. He ate 100% of his breakfast. Able to use bedside commode with no assistance. Small amount of blood tinged secretions when patient blows his nose. Patient will benefit from humidified air which I will set up. No BM as of 09:00.
--- NOTE | 2017-02-12 09:34 | NUR ---
SOAP WORKER - BG - Patient complained of nausea and was given 4 mg of zofran ivp. Humidifier was added to nasal cannula.
--- NOTE | 2017-02-12 10:35 | NUR ---
CASH REGISTER OPERATOR - BG - Urine collected. Awaiting lab pickup.
[2017-02-12] MEDS: METFORMIN XR 500 MG TAB.SR.24H PO SCH (10:54)
[2017-02-12] MEDS: CEFTRIAXONE 1 G in IV D5W 50 ML IV SCH (13:00)
--- NOTE | 2017-02-12 15:33 | NUR ---
Patient stated that his nausea resolved after receiving the Zofran 4 mg ivp. He has orders for Telemetry and we are waiting for a bed to open. Patient was given Ceftriaxone ivpb per MD order. Patient has not had any complaints of pain. He prefers to use the bedside commode but has not had a BM yet. has been at bedside all day.
[2017-02-12] MEDS: TBO-FILGRASTIM 300 MCG/0.5 ML SYRINGE SQ SCH (17:13)
[2017-02-12 17:33] LABS: APPEARANCE,URINE CLEAR (CLEAR); BILIRUBIN,URINE NEGATIVE (NEGATIVE); BLOOD, URINE NEGATIVE Ery/uL (NEGATIVE); COLOR,URINE YELLOW (YELLOW); KETONES,URINE NEGATIVE (NEGATIVE); LEUKOCYTE ESTERASE ,URINE NEGATIVE (NEGATIVE); NITRITE, URINE NEGATIVE (NEGATIVE); PROTEIN,URINE NEGATIVE (NEGATIVE); UGLUCOSE NEGATIVE (NEGATIVE); UROBILINOGEN,URINE 0.2 EU/dL (0.2)
--- NOTE | 2017-02-12 17:45 | NUR ---
RN NOTES PT. TRANSFERRED FROM ICU RECEIVED PT. IN MEDICALLY STABLE CONDITION, A&OX4. VITAL SIGNS: BP 123/71, PULSE 63, RR 18, PULSE OXYGEN 95%, AND TEMP. 97.7 F. PT. IS ON OXYGEN 1-2 L/MIN BREATHING UNLABORED. PT. HAS LEFT FOREARM IV ACCESS. NO S/S OF ACUTE DISTRESS. WILL CONTINUE TO ASSESS AND MONITOR.
--- NOTE | 2017-02-12 17:50 | NUR ---
RN NOTES PT. WAS PLACED ON TELE MONITORING. PT. HAS SINUS RHYTHM 72 BPM.
--- NOTE | 2017-02-12 17:50 | NUR ---
Report was given to Wen in Telemetry and patient was transferred via wheelchair (on monitor) at 17:30. Blood glucose at 17:00 was 132 and patient refused insulin sc.
--- NOTE | 2017-02-12 17:56 | NUR ---
RN NOTES, ASSESSED SKIN PT. HAS RIGHT INNER ARM BRUISING, SACRAL REDNESS, AND REDNESS ON THE RIGHT SIDE OF THE NECK PICTURES WERE TAKEN AND PLACED INSIDE CHART.
--- NOTE | 2017-02-12 19:35 | NUR ---
RN CLOSING NOTES PT. IN BED A&OX4. BREATHING UNLABORED, NO SOB ON ROOM AIR. NO S/S OF ACUTE DISTRESS. PICTURES WERE TAKEN ON PT.'S SKIN AND PLACED IN CHART. PT. BELONGINGS WERE CHECKED WITH PT. AT BEDSIDE AND SIGNED. PT. HAS LEFT FOREARM IV ACCESS. BED IS IN LOW, LOCKED POSITION, AND CALL LIGHT IS WITHIN REACH. WILL ENDORSE REPORT TO NURSE.
--- NOTE | 2017-02-12 20:00 | NUR ---
SPINE SUPERVISOR NOTES RECEIVED PATIENT LAYING IN BED IN SEMI [place]HEN POSITION. WITHOUT C/O PAIN. NO SOB, NO ACUTE DISTRESS NOTED. A & O X 4, SMILING, SPEAKS SAMI WITH MINIMAL CHILEAN, ABLE TO MAKE NEEDS KNOWN. ON TELE MONITORING WITH SR AT 73. ON OXYGEN AT 2 LPM VIA NC. BED IN LOW LOCKED POSITION. CALL LIGHT WITHIN REACH. CONTINUING TO MONITOR CLOSELY.
--- NOTE | 2017-02-12 20:01 | NUR ---
MEAT PULLER NOTES PATIENT HAS IV ACCESS TO LFA, INTACT PATENT. NO S/S OF INFECTION NOTED.
--- NOTE | 2017-02-12 21:05 | NUR ---
RN NOTES: CALLED DR VELAZQUEZ TO VERIFY, PT HAS LOVENOX 40 MG SQ SCHEDULED AT THIS TIME, PER DR CORONA'S NOTES, OK TO CONTINUE LOVENOX GIVEN CURRENT LABS: PLT: 76, HGB: 8.8. PER DR VELAZQUEZ, OK TO FOLLOW DR CORONA'S RECOMMENDATION AND GIVE LOVENOX.
--- NOTE | 2017-02-12 21:05 | NUR ---
RN NOTES: CALLED DR VELAZQUEZ TO INFORM HIM THAT PATIENT IS REFUSING BLOOD TRANSFUSION. Addendum: 02/12/17 at 2136 by RAPHAEL ALEGRIA RN PLEASE DISREGARD THIS , NOTES ARE FOR DIFFERENT PT.
[2017-02-12] MEDS: ENOXAPARIN SODIUM 40 MG/0.4 ML DISP.SYRIN SQ SCH (21:15)
--- NOTE | 2017-02-12 21:20 | NUR ---
RN NOTES: BLOOD SUGAR CHECKED AT 167 MG/DL, ADMINISTERED 3 UNITS REGULAR INSULIN PER SCALE. GAVE LIGHT SNACK WHICH PATIENT ATE. WILL CONT TO MONITOR.
[2017-02-13] VITALS (7 sets, daily range): BP systolic 97–123; BP diastolic 54–87
[2017-02-13] MEDS: METOPROLOL TARTRATE 50 MG TABLET PO SCH ×4 (00:14→18:10)
--- NOTE | 2017-02-13 06:40 | NUR ---
DESIGNATED BROKER CLOSING NOTES PATIENT SLEPT INTERMITTENTLY AT NIGHT. NO ACUTE DISTRESS, NO SOB, NO C/O PAIN NOTED. ON TELE MONITORING WITH SR AT 57. COOPERATIVE, ABLE TO MAKE NEEDS KNOWN. ALL NEEDS MET. BED IN LOW LOCKED POSITION. CALL LIGHT WITHIN REACH. NO DIARRHEA NOTED. BS 106MG/DL AT 0630. WILL ENDORSE TO AM SHIFT NURSE.
[2017-02-13] MEDS: BLOOD SUGAR DIAGNOSTIC 1 EACH STRIP IN SCH ×4 (06:52→21:36)
[2017-02-13 07:32] LABS: BASOPHILS % (AUTO) 0.2 % (0.0-2.0); EOSINOPHILS % (AUTO) 0.1 % (0.0-6.0); HEMATOCRIT 26 % (39-51); LYMPHOCYTES # (AUTO) 1.4 /CMM (0.8-4.8); LYMPHOCYTES % (AUTO) 11.7 % (20.0-44.0); MEAN CORPUSCULAR HEMOGLOBIN 29 PG (26.0-33.0); MEAN CORPUSCULAR HGB CONC 34 g/dl (31.0-36.0); MEAN CORPUSCULAR VOLUME 85 fL (80-96); MONOCYTES # (AUTO) 0.5 /CMM (0.1-1.30); MONOCYTES % (AUTO) 4.4 % (2.0-12.0); NEUTROPHILS # (AUTO) 9.9 /CMM (1.8-8.9); NEUTROPHILS % (AUTO) 83.6 % (43.0-81.0); PLATELET COUNT (AUTO) 137 /CMM (150-450); RDW COEFFICIENT OF VARIATION 20.3 (11.5-15.0); RED BLOOD CELL COUNT(AUTO) 3.08 MIL/uL (4.5-6.0)
[2017-02-13 07:44] LABS: CALCIUM, SERUM 8.8 mg/dL (8.5-10.1); CARBON DIOXIDE 25 mmol/L (21-32); CHLORIDE 104 mmol/L (98-107); GLUCOSE 98 mg/dL (74-106); POTASSIUM 4.1 mmol/L (3.5-5.1); SODIUM SERUM 137 mmol/L (136-145); UREA NITROGEN, BLOOD 17 mg/dL (7-18)
[2017-02-13 07:49] LABS: WHITE BLOOD COUNT (AUTO) 11.9 K/uL (4.3-11.0)
[2017-02-13] MEDS: VALSARTAN 80 MG TABLET PO SCH (09:00)
[2017-02-13] MEDS: CLOPIDOGREL BISULFATE 75 MG TABLET PO SCH (09:05)
[2017-02-13] MEDS: METFORMIN XR 500 MG TAB.SR.24H PO SCH (09:05)
[2017-02-13] MEDS: PANTOPRAZOLE 40 MG TABLET.DR PO SCH (09:06)
[2017-02-13] MEDS: FOLIC ACID 1 MG TABLET PO SCH (09:06)
[2017-02-13] MEDS: MECLIZINE HCL 25 MG TABLET PO SCH ×2 (09:07→18:09)
[2017-02-13] MEDS: TAMSULOSIN 0.4 MG CAP.SR.24H PO SCH (09:07)
[2017-02-13] MEDS: methylPREDNISolone SOD SUCC 125 MG/2ML VIAL IV SCH (09:07)
[2017-02-13] MEDS: FERROUS SULFATE (325 MG) 325 MG/TAB TABLET PO SCH (09:07)
[2017-02-13] MEDS: CEFTRIAXONE 1 G in IV D5W 50 ML IV SCH (12:43)
[2017-02-13] MEDS ORDERED: BISACODYL SUPP (10 MG) 10 MG/SUPP.RECT SUPP.RECT RC ONE (15:00)
[2017-02-13] MEDS: TBO-FILGRASTIM 300 MCG/0.5 ML SYRINGE SQ SCH (17:00)
[2017-02-13] MEDS: DOCUSATE SODIUM 100 MG CAPSULE PO SCH (17:00)
--- NOTE | 2017-02-13 18:16 | NUR ---
RN NOTES HOLD GRANEX PER INSTRUCTION OF PHARMACIST ARMANI AND WOULD NOTIFY DR CORONA
--- NOTE | 2017-02-13 18:44 | NUR ---
RN NOTES ON BED RESTING FAIRLY WITH NO COMPLAIN AT THIS TIME. VERBALIZED RELIEF AFTER BOWEL MOVEMENT. INFORMED DR CORONA THAT GANEX IS NOT GIVEN FOR NOW TILL FURTHER INSTRUCTION AND SAID ITS OKAY. NEEDS ANTICIPATED. NO UNTOWARD SYMPTOM NOTED WITHIN THE SHIFT. WILL ENDORSE TO FIGHTING VEHICLE SYSTEMS MAINTAINER NURSE FOR CONTINUITY OF CARE.
--- NOTE | 2017-02-13 19:30 | NUR ---
MS RN OPENING NOTES: PATIENT IN BED, AOX4, ON ROOM AIR, BREATHING EVEN AND UNLABORED. APPEARS CALM AND IN NO DISTRESS. DENIES PAIN AT THIS TIME. PIV OVER LFA G20 INTACT AND PATENT TO FLUSH. PROVIDED FOR COMFORT AND SAFETY, BED IN LOWEST AND LOCKED POSITION, SIDERAILS UPX2. CALL LIGHT WITHIN REACH. WILL CONT TO MONITOR.
--- NOTE | 2017-02-13 19:45 | NUR ---
RN NOTES: DR CORONA AT BEDSIDE TO ASSESS PATIENT. PER MD, PATIENT MAY BE DISCHARGED TOMORROW PER IM. GRANYAIMA WAS D'JARON AND NEW ORDERS FOR SOLUMEDROL MADE.
[2017-02-13] MEDS: ENOXAPARIN SODIUM 40 MG/0.4 ML DISP.SYRIN SQ SCH (21:38)
[2017-02-13] MEDS: INSULIN REGULAR, HUMAN 100 UNIT/ML 3 ML VIAL SQ PRN (21:42)
--- NOTE | 2017-02-13 21:43 | NUR ---
RN NOTES: BLOOD SUGAR CHECKED AT 135 MG/ DL, PATIENT REFUSING INSULIN AT THIS TIME. RISKS EXPLAINED TO PATIENT. WILL CONT TO MONITOR.
[2017-02-14 05:27] VITALS: BP 96/45
[2017-02-14] MEDS: METOPROLOL TARTRATE 50 MG TABLET PO SCH ×3 (06:00→12:29)
[2017-02-14] MEDS: BLOOD SUGAR DIAGNOSTIC 1 EACH STRIP IN SCH ×2 (06:25→12:02)
--- NOTE | 2017-02-14 06:57 | NUR ---
MS RN CLOSING NOTES: PATIENT IN BED, AOX4, ON ROOM AIR, BREATHING EVEN AND UNLABORED. APPEARS CALM AND IN NO DISTRESS. DENIES PAIN. AM BLOOD SUGAR CHECKED AT 104 MG/DL. DUE MEDS GIVEN, PROVIDED FOR COMFORT AND SAFETY. BED IN LOWEST AND LOCKED POSITION, SIDERAILS UPX3. NO ACUTE CHANGE IN CONDITION NOTED THROUGH SHIFT. WILL ENDORSE TO AM RN FOR NICOLA.
--- NOTE | 2017-02-14 07:30 | NUR ---
RN OPENING NOTES RECEIVED PT. IN BED A&OX4. BREATHING ON ROOM AIR UNLABORED AND EVENLY. NO S/S OF SOB, NO S/S OF ACUTE DISTRESS. IV ACCESS IS INTACT. HEAD OF BED UP. BED IS IN LOW, LOCKED POSITION, 2 SIDE RAILS UP, AND INSTRUCTED PT. TO USE CALL LIGHT FOR ASSISTANCE. WILL CONTINUE TO ASSESS AND MONITOR.
[2017-02-14 08:00] VITALS: BP 112/60
[2017-02-14] MEDS ORDERED: predniSONE 20 MG TABLET PO SCH (09:00)
[2017-02-14] MEDS ORDERED: PRED20TA PO ×2 (09:46)
[2017-02-14] MEDS ORDERED: METO50TA3 PO (09:46)
[2017-02-14] MEDS ORDERED: PRED10TA PO (09:46)
[2017-02-14] MEDS: DOCUSATE SODIUM 100 MG CAPSULE PO SCH (10:01)
[2017-02-14] MEDS: PANTOPRAZOLE 40 MG TABLET.DR PO SCH (10:01)
[2017-02-14] MEDS: FERROUS SULFATE (325 MG) 325 MG/TAB TABLET PO SCH (10:02)
[2017-02-14] MEDS: MECLIZINE HCL 25 MG TABLET PO SCH (10:02)
[2017-02-14] MEDS: FOLIC ACID 1 MG TABLET PO SCH (10:02)
[2017-02-14] MEDS: TAMSULOSIN 0.4 MG CAP.SR.24H PO SCH (10:03)
[2017-02-14] MEDS: VALSARTAN 80 MG TABLET PO SCH (10:03)
[2017-02-14] MEDS: CLOPIDOGREL BISULFATE 75 MG TABLET PO SCH (10:04)
--- NOTE | 2017-02-14 11:02 | NUR ---
RN NOTES PT. RECEIVED A CD COPY OF ALL THE IMAGES DONE AT [facility] DURING THIS HOSPITALIZATION.
[2017-02-14] MEDS: METFORMIN XR 500 MG TAB.SR.24H PO SCH (12:02)
[2017-02-14 12:29] VITALS: BP 119/66
[2017-02-14] MEDS ORDERED: FLU VACC QS 2017-18(36MOS+)/PF 0.5 ML DISP.SYRIN IM ONE (13:00)
[2017-02-14] MEDS: CEFTRIAXONE 1 G in IV D5W 50 ML IV SCH (13:00)
--- NOTE | 2017-02-14 14:18 | NUR ---
GROMMET MACHINE OPERATOR NOTES PT. LEFT SOH IN MEDICALLY STABLE CONDITION BY CAR WITH FAMILY ALONG SIDE. DISCHARGE INSTRUCTIONS WERE PROVIDED TO PT. AND FAMILY, AND VERBALIZED UNDERSTANDING. IV AND ID BAND WAS REMOVED WITHOUT COMPLICATIONS. PT. REFUSED FLU VACCINATION BEFORE DISCHARGE AND SAID THAT HE WILL RECEIVE ELSEWHERE. ALL QUESTIONS WERE ANSWERED. BELONGINGS WERE CHECKED AND BELONGINGS LIST WAS SIGNED. PICTURES OF PT.'S SKIN WAS TAKEN AND PLACED IN CHART.
== END 2017-02-14 16:40 | disposition home or self-care (01) | DRG 720 ==
LOC: ER 11:32 → ICU 14:06 → MED 02-12 17:33 → TELE 02-12 17:36 → MED 02-13 10:17
DX: A41.9 Sepsis, unspecified organism (principal); I21.4 Non-ST elevation (NSTEMI) myocardial infarction; D61.810 Antineoplastic chemotherapy induced pancytopenia; E44.0 Moderate protein-calorie malnutrition; E87.2 Acidosis; J18.9 Pneumonia, unspecified organism; I11.0 Hypertensive heart disease with heart failure; I50.9 Heart failure, unspecified; D69.59 Other secondary thrombocytopenia; F03.90 Unspecified dementia, unspecified severity, without behavioral disturbance, psychotic disturbance, mood disturbance, and anxiety; C34.90 Malignant neoplasm of unspecified part of unspecified bronchus or lung; E11.65 Type 2 diabetes mellitus with hyperglycemia; E86.0 Dehydration; E87.1 Hypo-osmolality and hyponatremia; E78.5 Hyperlipidemia, unspecified; I25.10 Atherosclerotic heart disease of native coronary artery without angina pectoris; Z87.891 Personal history of nicotine dependence; Z79.02 Long term (current) use of antithrombotics/antiplatelets; Z98.61 Coronary angioplasty status; Z92.21 Personal history of antineoplastic chemotherapy; Z98.62 Peripheral vascular angioplasty status; E88.09 Other disorders of plasma-protein metabolism, not elsewhere classified; Z68.1 Body mass index [BMI] 19.9 or less, adult; D64.9 Anemia, unspecified; K52.9 Noninfective gastroenteritis and colitis, unspecified; I73.9 Peripheral vascular disease, unspecified; N40.0 Benign prostatic hyperplasia without lower urinary tract symptoms; T45.1X5A Adverse effect of antineoplastic and immunosuppressive drugs, initial encounter
CPT/HCPCS: 36415; 71010-TC; 71250-TC; 80048-TC; 80076-TC; 81000-TC; 82962-TC; 83605-TC; 83735-TC; 83880; 84100-TC; 84484-TC; 85025-TC; 85730-TC; 87040-TC; 87081-TC; 93307-TC; A4606; J0696; J1442; J1650; J1815; J2405; J2930; J7030; J7040; J7050; J7060; J8597; Z7610

== ENCOUNTER 2017-02-17 11:48 | Inpatient (IN) | payer OTHER ==
[~2017-02-17] VITALS: Ht 162.6 cm; Wt 73.5 kg
[~2017-02-17 11:48] MED LIST changes: -ASPI-605 PO; -ASPI-807; +METO50TA3 PO; +PRED10TA PO; +PRED20TA PO
[2017-02-17] MEDS ORDERED: ONDANSETRON HCL/PF 4 MG/2 ML VIAL IVP ONE (12:00)
[2017-02-17] MEDS ORDERED: MORPHINE SULFATE INJ 2 MG/ML DISP.SYRIN IV ONE (12:00)
[2017-02-17] MEDS ORDERED: ASPIRIN 81 MG TAB.CHEW PO ONE (12:00)
[2017-02-17] MEDS ORDERED: ONDANSETRON HCL/PF 4 MG/2 ML VIAL ONE (12:03)
[2017-02-17] MEDS ORDERED: MORPHINE SULFATE INJ 4 MG/ML DISP.SYRIN ONE (12:04)
[2017-02-17 12:05] LABS: BASOPHILS % (AUTO) 0.1 % (0.0-2.0); EOSINOPHILS % (AUTO) 0.5 % (0.0-6.0); HEMATOCRIT 28 % (39-51); HEMOGLOBIN 9.7 g/dL (13.5-17.5); LYMPHOCYTES # (AUTO) 3.2 /CMM (0.8-4.8); LYMPHOCYTES % (AUTO) 49.4 % (20.0-44.0); MEAN CORPUSCULAR HEMOGLOBIN 30 PG (26.0-33.0); MEAN CORPUSCULAR HGB CONC 34 g/dl (31.0-36.0); MEAN CORPUSCULAR VOLUME 88 fL (80-96); MONOCYTES # (AUTO) 0.5 /CMM (0.1-1.30); MONOCYTES % (AUTO) 8.6 % (2.0-12.0); NEUTROPHILS # (AUTO) 2.6 /CMM (1.8-8.9); NEUTROPHILS % (AUTO) 41.4 % (43.0-81.0); PLATELET COUNT (AUTO) 342 /CMM (150-450); RDW COEFFICIENT OF VARIATION 20.9 (11.5-15.0); RED BLOOD CELL COUNT(AUTO) 3.22 MIL/uL (4.5-6.0); WHITE BLOOD COUNT (AUTO) 6.3 K/uL (4.3-11.0)
--- NOTE | 2017-02-17 12:09 | NUR ---
FAMILY AT BS. PT AND FAMILY REFUSED MEDS.
--- NOTE | 2017-02-17 12:09 | NUR ---
XRAY AT BS
[2017-02-17 12:20] LABS: CALCIUM, SERUM 8.4 mg/dL (8.5-10.1); CARBON DIOXIDE 18 mmol/L (21-32); CHLORIDE 102 mmol/L (98-107); CREATININE 1.2 mg/dL (0.6-1.3); GLUCOSE 184 mg/dL (74-106); POTASSIUM 3.9 mmol/L (3.5-5.1); SODIUM SERUM 134 mmol/L (136-145); UREA NITROGEN, BLOOD 12 mg/dL (7-18)
[2017-02-17 12:22] LABS: INR 1.01 (0.87-1.13); PROTHROMBIN TIME 10.5 SECS (9.5-12.7)
[2017-02-17 12:27] LABS: TROPONIN I 0.044 ng/mL (0.00-0.056)
[2017-02-17] MEDS ORDERED: IV NS 0.9% 1,000 ML BAG IV ONE ×3 (12:30→14:00)
[2017-02-17 12:32] LABS: B-TYPE NATRIURETIC PEPTIDE 490 PG/ML (0-125)
--- NOTE | 2017-02-17 12:45 | NUR ---
PT UNABLE TO GIVE URINE SAMPLE AT THIS TIME. URINAL LEFT AT BS.
[2017-02-17 13:08] LABS: ALBUMIN 3.1 g/dL (3.4-5.0); BILIRUBIN,DIRECT 0.2 mg/dL (0.0-0.2); BILIRUBIN,TOTAL 0.8 mg/dL (0.2-1.0); TOTAL PROTEIN, SERUM 6.8 g/dL (6.4-8.2)
--- NOTE | 2017-02-17 13:25 | NUR ---
PT STILL UNABLE TO GIVE URINE. AWARE.
--- NOTE | 2017-02-17 13:30 | NUR ---
AT TO DISCUSS WITH PT AND FAMILY THE POC.
--- NOTE | 2017-02-17 14:05 | NUR ---
REPORT GIVEN TO ROSANNE CHIANG FOR TELE ROOM [id number].
--- NOTE | 2017-02-17 14:35 | NUR ---
DR. LOUIE AT BS.
--- NOTE | 2017-02-17 15:09 | NUR ---
NOTED 300 ML URINE OUTPUT. URINE SAMPLE COLLECTED, SENT.
--- NOTE | 2017-02-17 15:20 | NUR ---
RN NOTES RECEIVED PT FROM ER, A/OX3. VITALS SIGNS ARE WNL. PT ON RA, RESPIRATIONS ARE EVEN AND UNLABORED. TELEMETRY LEADS PLACED TO MONITOR. PT ABLE TO AMBULATE TO BED. WILL CONTINUE TO MONITOR.
[2017-02-17] MEDS: CLOPIDOGREL BISULFATE 75 MG TABLET PO SCH (15:30)
[2017-02-17] MEDS ORDERED: MAGNESIUM HYDROXIDE 30 ML UDC PO PRN (15:30)
[2017-02-17] MEDS ORDERED: ZOLPIDEM TARTRATE 5 MG TABLET PO PRN (15:30)
[2017-02-17] MEDS ORDERED: HYDROCODONE/APAP 5/325MG 1 EACH TABLET PO PRN (15:30)
[2017-02-17] MEDS ORDERED: Z GUARD REMEDY 2 OZ OINT TP PRN (15:30)
[2017-02-17] MEDS ORDERED: ONDANSETRON HCL/PF 4 MG/2 ML VIAL IVP PRN (15:30)
[2017-02-17] MEDS ORDERED: ACETAMINOPHEN 325 MG TABLET PO PRN (15:30)
[2017-02-17] MEDS ORDERED: MAG HYDROX/AL HYDROX/SIMETH 30 ML UDC PO PRN (15:30)
[2017-02-17 16:00] VITALS: BP 96/53
[2017-02-17] MEDS: IV NS 0.9% 1,000 ML IV PRN (16:22)
[2017-02-17] MEDS: MECLIZINE HCL 25 MG TABLET PO SCH (16:25)
--- NOTE | 2017-02-17 18:25 | NUR ---
RN NOTES PT IS IN BED, SITTING UP COMFORTABLY. PT ON RA, RESPIRATIONS ARE EVEN AND UNLABORED. IV ON LFA INTACT AND PATENT, RUNNING NS @ 75ML/HR. ALL MEDS WERE GIVEN ORDERED. SAFETY MEASURES ARE IN PLACE, CALL LIGHT IS IN REACH. WILL ENDORSE TO MAINTENANCE HELPER UTILITY ENGINEER RN FOR CONTINUITY OF CARE.
--- NOTE | 2017-02-17 19:30 | NUR ---
BRANCH BANKER NOTE: PATIENT RESTING IN BED, NO ACUTE DISTRESS NOTED. BREATHING EVEN AND UNLABORED, NO SOB NOTED. IV TO LFA IN PLACE, INFUSING NS AT 75 M/HR. PATIENT DENIES CHEST PAIN AT THIS TIME. BED LOCKED AND IN LOWEST POSITION, CALL LIGHT IN REACH. WILL CONTINUE TO MONITOR.
[2017-02-17 20:00] VITALS: BP 90/52
[2017-02-17] MEDS ORDERED: TAMSULOSIN 0.4 MG CAP.SR.24H ONE (20:53)
[2017-02-17] MEDS ORDERED: TAMSULOSIN 0.4 MG CAP.SR.24H PO SCH (21:00)
[2017-02-18] VITALS: BP 91/50
--- NOTE | 2017-02-18 00:15 | NUR ---
FUR BLOWER OPERATOR NOTE: PATIENT REQUEST FOR SLEEPING MEDICATION, AMBIEN 5MG ORAL GIVEN PER MD ORDER. WILL CONTINUE TO MONITOR.
[2017-02-18 04:00] VITALS: BP 95/52
--- NOTE | 2017-02-18 06:20 | NUR ---
WASHING MACHINE ASSEMBLER NOTE: PATIENT RESTING IN BED, NO ACUTE DISTRESS NOTED. BREATHING EVEN AND UNLABORED, NO SOB NOTED. IV TO LFA IN PLACE, INFUSING NS AT 75 M/HR. TELE READING SR 70. BED LOCKED AND IN LOWEST POSITION, CALL LIGHT IN REACH. WILL ENDORSE TO DAY NURSE TO CONTINUE WITH PLAN OF CARE.
[2017-02-18 06:26] LABS: BASOPHILS % (AUTO) 0.3 % (0.0-2.0); EOSINOPHILS % (AUTO) 1.5 % (0.0-6.0); HEMATOCRIT 25 % (39-51); HEMOGLOBIN 8.5 g/dL (13.5-17.5); LYMPHOCYTES # (AUTO) 1.2 /CMM (0.8-4.8); LYMPHOCYTES % (AUTO) 39.9 % (20.0-44.0); MEAN CORPUSCULAR HEMOGLOBIN 31 PG (26.0-33.0); MEAN CORPUSCULAR HGB CONC 34 g/dl (31.0-36.0); MEAN CORPUSCULAR VOLUME 89 fL (80-96); MONOCYTES # (AUTO) 0.3 /CMM (0.1-1.30); NEUTROPHILS # (AUTO) 1.4 /CMM (1.8-8.9); NEUTROPHILS % (AUTO) 48.3 % (43.0-81.0); PLATELET COUNT (AUTO) 235 /CMM (150-450); RDW COEFFICIENT OF VARIATION 22.5 (11.5-15.0); RED BLOOD CELL COUNT(AUTO) 2.78 MIL/uL (4.5-6.0)
[2017-02-18 06:39] LABS: ALANINE AMINOTRANSFERASE 13 U/L (12-78); ALBUMIN 2.6 g/dL (3.4-5.0); ALKALINE PHOSPHATASE 53 U/L (46-116); ASPARTATE AMINOTRANSFERASE 16 U/L (15-37); BILIRUBIN,TOTAL 0.6 mg/dL (0.2-1.0); CALCIUM, SERUM 7.9 mg/dL (8.5-10.1); CARBON DIOXIDE 25 mmol/L (21-32); CHLORIDE 114 mmol/L (98-107); CREATININE 0.8 mg/dL (0.6-1.3); GLUCOSE 95 mg/dL (74-106); MAGNESIUM 1.9 mg/dL (1.8-2.4); PHOSPHORUS 2.6 mg/dL (2.5-4.9); POTASSIUM 4.2 mmol/L (3.5-5.1); SODIUM SERUM 144 mmol/L (136-145); TOTAL PROTEIN, SERUM 5.9 g/dL (6.4-8.2); UREA NITROGEN, BLOOD 9 mg/dL (7-18)
[2017-02-18 06:47] LABS: CHOLESTEROL 123 mg/dL (<200); HDL CHOLESTEROL 33 mg/dL (40-60); LDL 84 mg/dL (0-99); THYROID STIMULATING HORMONE 1.111 uIU/mL (0.358-3.74); TRIGLYCERIDES 51 mg/dL (30-150)
[2017-02-18] MEDS: IV NS 0.9% 1,000 ML IV PRN (07:26)
--- NOTE | 2017-02-18 07:48 | NUR ---
HEAD STRENGTH AND CONDITIONING COACH: INITIAL NOTE RECEIVED PT A/OX3. ON TELE MONITOR WITH SR AT 80. NO DISTRESS NOTED. NO SOB NOTED. SATING AT 94% ON ROOM AIR. AMBULATORY WITH OUT ASSIST. BED SIDE COMMODE. ON REGULAR DIET. LFA #20 RUNNING NS AT 75ML/HR. SITE CLEAR. NO PAIN NOTED. NO INFILTRATION NOTED. NO CHEST PAIN NOTED. RESTING COMFORTABLY IN BED. CALL LIGHT WITHIN REACH.
[2017-02-18 08:00] VITALS: BP 101/59
[2017-02-18] MEDS: MECLIZINE HCL 25 MG TABLET PO SCH ×2 (08:13→16:39)
[2017-02-18] MEDS: METFORMIN XR 500 MG TAB.SR.24H PO SCH (08:13)
[2017-02-18] MEDS: FERROUS SULFATE (325 MG) 325 MG/TAB TABLET PO SCH (08:13)
[2017-02-18] MEDS: FOLIC ACID 1 MG TABLET PO SCH (08:13)
[2017-02-18] MEDS: CLOPIDOGREL BISULFATE 75 MG TABLET PO SCH (08:14)
[2017-02-18] MEDS ORDERED: TAMSULOSIN 0.4 MG CAP.SR.24H PO SCH (09:00)
[2017-02-18] MEDS: FLUDROCORTISONE 0.1 MG TABLET PO SCH (12:04)
[2017-02-18 12:40] LABS: URINE SODIUM, RANDOM 115 mmol/l (40-220)
--- NOTE | 2017-02-18 12:59 | NUR ---
PER ORDER TO DO BLADDER SCAN POST URINATION. 0ML RESIDUAL NOTED IN BLADDER.
[2017-02-18 13:05] VITALS: BP_SYST 107; BP_SYST 81; BP_SYST 82; BP_DIAS 45; BP_DIAS 50; BP_DIAS 61
[2017-02-18 16:00] VITALS: BP 97/56
[2017-02-18 17:21] LABS: OSMOLALITY,URINE 378 mOS/kg (340-1090)
--- NOTE | 2017-02-18 18:50 | NUR ---
PT A/OX3. NO DISTRESS NOTED. NO PAIN NOTED. NO SOB NOTED. SATING AT 96% ON ROOM AIR. TOOK ALL MEDICATIONS ON TIME. NO ADVERSE REACTIONS NOTED. TRANSFERRED TO IA FROM TELE. AMBULATORY. ON REGULAR DIET. L FA #20 SL NO IV FLUIDS RUNNING. D/C IV FLUIDS. REQUESTED A BLADDER SCAN POST URINATION. 0ML RESIDUAL NOTED. SITE CLEAR, NO REDNESS OR INFILTRATION NOTED. RESTING COMFORTABLY IN BED. CALL LIGHT WITHIN REACH.
--- NOTE | 2017-02-18 20:00 | NUR ---
Patent recieved alert and orientated. Able to verbalize his needs, Made aware to use the call light whenneed to get OOB for safety. IV site left arm he c/o pain, D/C and restarted gs22 in the left hand. He is in good spirits no c/o chest pain at this time resp even and unlabored
[2017-02-18 20:33] VITALS: BP 106/57
[2017-02-18] MEDS: predniSONE 10 MG TABLET PO SCH (20:46)
[2017-02-18] MEDS: TAMSULOSIN 0.4 MG CAP.SR.24H PO SCH (21:00)
[2017-02-18] MEDS: CIPROFLOXACIN HCL 250 MG TABLET PO SCH (21:00)
[2017-02-19 05:57] LABS: BASOPHILS % (AUTO) 0.2 % (0.0-2.0); EOSINOPHILS % (AUTO) 1.2 % (0.0-6.0); HEMATOCRIT 26 % (39-51); LYMPHOCYTES # (AUTO) 1.3 /CMM (0.8-4.8); LYMPHOCYTES % (AUTO) 36.5 % (20.0-44.0); MEAN CORPUSCULAR HEMOGLOBIN 30 PG (26.0-33.0); MEAN CORPUSCULAR HGB CONC 34 g/dl (31.0-36.0); MEAN CORPUSCULAR VOLUME 89 fL (80-96); MONOCYTES # (AUTO) 0.3 /CMM (0.1-1.30); MONOCYTES % (AUTO) 7.7 % (2.0-12.0); NEUTROPHILS % (AUTO) 54.4 % (43.0-81.0); PLATELET COUNT (AUTO) 288 /CMM (150-450); RDW COEFFICIENT OF VARIATION 23.3 (11.5-15.0); RED BLOOD CELL COUNT(AUTO) 2.97 MIL/uL (4.5-6.0); WHITE BLOOD COUNT (AUTO) 3.6 K/uL (4.3-11.0)
[2017-02-19 06:32] LABS: INR 1.03 (0.87-1.13); PROTHROMBIN TIME 10.7 SECS (9.5-12.7)
[2017-02-19 06:51] LABS: D-DIMER 7.34 mg/L(FEU (0.17-0.50)
--- NOTE | 2017-02-19 07:00 | NUR ---
Patient remains alert and comfortable No diarrhea this shift. Used the bedside commode during the night.Slept well
--- NOTE | 2017-02-19 07:30 | NUR ---
MS RN AM NOTES PT A/OX3 IN BED, PORTUGUESE SPEAKING, ON RA, NAD, NO SOB NOTED. SATING AT 97%. DENIES ANY PAIN OR DISCOMFORT AT THIS TIME. LEFT FA #20, FLUSHES WELL SITE CLEAR. REGULAR DIET. AMBULATORY. BED SIDE COMMODE. RESTING COMFORTABLY IN BED. CALL LIGHT WITHIN REACH. WILL CONTINUE TO MONITOR.
[2017-02-19 08:00] VITALS: BP 105/59
--- NOTE | 2017-02-19 08:25 | NUR ---
MS RN NOTES PT C/O NOT FEELING WELL. C/O CHEST PAIN 07/06, AND STATED THAT ITS THE SAME PAIN WHY HE WAS BROUGHT HERE IN THE HOSPITAL. BP 105/59. DR. CORTES AT BEDSIDE. PER DR. CORTES, GIVE NITROSTAT 0.4 MG 1 TAB NOW THEN A STAT EKG.
[2017-02-19] MEDS ORDERED: NITROGLYCERIN 0.4 MG/TAB BOTTLE SL PRN (08:30)
[2017-02-19] MEDS: CLOPIDOGREL BISULFATE 75 MG TABLET PO SCH (08:54)
[2017-02-19] MEDS: predniSONE 10 MG TABLET PO SCH (08:55)
[2017-02-19] MEDS: FLUDROCORTISONE 0.1 MG TABLET PO SCH (08:55)
[2017-02-19] MEDS: CIPROFLOXACIN HCL 250 MG TABLET PO SCH ×2 (08:55→21:12)
[2017-02-19] MEDS: METFORMIN XR 500 MG TAB.SR.24H PO SCH (08:55)
[2017-02-19] MEDS: FERROUS SULFATE (325 MG) 325 MG/TAB TABLET PO SCH (08:55)
[2017-02-19] MEDS: MECLIZINE HCL 25 MG TABLET PO SCH ×2 (08:55→16:18)
[2017-02-19] MEDS: FOLIC ACID 1 MG TABLET PO SCH (08:55)
--- NOTE | 2017-02-19 09:00 | NUR ---
MS MARIIA NOTES DR. ANDINO AWARE PT IS NOT FEELING GOOD. BP 77/49. ORDERED NS 1 L OPEN WIDE. Addendum: 02/19/17 at 1020 by NUSRAT MAYER RN ADDENDUM: BS CHECK 137 MG/DL CHECKED AT 0905
[2017-02-19] MEDS ORDERED: IV NS 0.9% 1,000 ML BAG IV ONE (09:30)
--- NOTE | 2017-02-19 09:40 | NUR ---
APPLICATION HELPER NOTES BP RE CHECK. 94/59. NS IV BOLUS 1 LITER ONGOING. DENIES ANY CHEST PAIN. AT BEDSIDE.
--- NOTE | 2017-02-19 10:07 | NUR ---
Social service consult requested by case maker Sarah requesting for SW to apply for IHSS for the pt. BON contacted pt's daughter Osmin and left her a voicemail requesting pt's social security number and current address so that SW can apply for In Home support Services for the pt.
[2017-02-19 12:00] VITALS: BP 96/50
[2017-02-19 16:00] VITALS: BP 124/72
[2017-02-19 18:00] VITALS: BP 124/72
[2017-02-19] MEDS ORDERED: IV NS 0.9% 1,000 ML BAG IV PRN (18:00)
--- NOTE | 2017-02-19 18:47 | NUR ---
MS RN CLOSING NOTES PT A/OX3 IN BED, MAORI SPEAKING, FAMILY AT BEDSIDE. ON RA, NAD, NO SOB NOTED. SATING AT 97%. DENIES ANY PAIN OR DISCOMFORT AT THIS TIME. RIGHT FA #20, WITH NS AT 75 ML/HR, SITE CLEAR. REGULAR DIET. AMBULATORY. BED SIDE COMMODE. RESTING COMFORTABLY IN BED. ALL NEEDS MET. CALL LIGHT WITHIN REACH. WILL ENDORSE TO NEXT SHIFT FOR NICOLA. DR. CORONA AT BEDSIDE. SPOKE WITH DAUGHTERS. ORDERED NM PULMONARY PERFUSION WITH VENTILATION. CONSENT SIGNED.
--- NOTE | 2017-02-19 19:40 | NUR ---
CHANNEL SALES DIRECTOR NOTE RECEIVED PATIENT FROM DAY SHIFT, PATIENT IS ALERT AND ORIENTEDX3, INDONESIAN SPEAKER, NO S/S OF RESPIRATORY DISTRESS OR PAIN NOTED AT THIS TIME. IV ON RIGHT FA IS PATENT AND INTACT, FLUID IS RUNNING. SRX2, BED IN LOW POSITION, CALL LIGHT WITHIN REACH, WILL CONTINUE TO MONITOR PATIENT. Addendum: 02/19/17 at 2006 by DANIELLE BEST RN TELE MONITOR SR 72
--- NOTE | 2017-02-19 20:06 | NUR ---
MS CHIANG NOTE PATIENT IS TAKING DOWN TO PULMONARY PERFUSION. Addendum: 02/19/17 at 2006 by DANIELLE BEST RN PURA GALE
[2017-02-19 20:25] VITALS: BP 103/63
--- NOTE | 2017-02-19 21:00 | NUR ---
AUTH SPECIALIST NOTE PATIENT CAME BACK FROM THE TEST.
[2017-02-19] MEDS: TAMSULOSIN 0.4 MG CAP.SR.24H PO SCH (21:11)
[2017-02-20] VITALS (7 sets, daily range): BP systolic 91–113; BP diastolic 47–61
[2017-02-20] MEDS: IV NS 0.9% 1,000 ML IV PRN ×2 (02:06→14:38)
[2017-02-20 06:23] LABS: BASOPHILS % (AUTO) 0.2 % (0.0-2.0); EOSINOPHILS % (AUTO) 0.9 % (0.0-6.0); HEMATOCRIT 24 % (39-51); HEMOGLOBIN 8.3 g/dL (13.5-17.5); LYMPHOCYTES # (AUTO) 1.3 /CMM (0.8-4.8); LYMPHOCYTES % (AUTO) 40.7 % (20.0-44.0); MEAN CORPUSCULAR HEMOGLOBIN 31 PG (26.0-33.0); MEAN CORPUSCULAR HGB CONC 35 g/dl (31.0-36.0); MEAN CORPUSCULAR VOLUME 90 fL (80-96); MONOCYTES # (AUTO) 0.4 /CMM (0.1-1.30); MONOCYTES % (AUTO) 13.3 % (2.0-12.0); NEUTROPHILS # (AUTO) 1.4 /CMM (1.8-8.9); NEUTROPHILS % (AUTO) 44.9 % (43.0-81.0); PLATELET COUNT (AUTO) 243 /CMM (150-450); RDW COEFFICIENT OF VARIATION 24.8 (11.5-15.0); RED BLOOD CELL COUNT(AUTO) 2.65 MIL/uL (4.5-6.0); WHITE BLOOD COUNT (AUTO) 3.1 K/uL (4.3-11.0)
--- NOTE | 2017-02-20 06:32 | NUR ---
PREPARATION PLANT REPAIRER NOTE PATIENT IS RESTING IN BED COMFORTABLY, NO S/S OF RESPIRATORY DISTRESS OR PAIN AT THIS TIME. IV ACCESS ON RIGHT FA IS PATENT AND INTACT, FLUID IS RUNNING. WILL ENDORSE TO DAY SHIFT NURSE FOR NICOLA.
[2017-02-20 06:43] LABS: CHLORIDE 110 mmol/L (98-107); CREATININE 0.8 mg/dL (0.6-1.3); GLUCOSE 100 mg/dL (74-106); POTASSIUM 3.6 mmol/L (3.5-5.1); SODIUM SERUM 142 mmol/L (136-145); UREA NITROGEN, BLOOD 8 mg/dL (7-18)
[2017-02-20 06:51] LABS: CARBON DIOXIDE 23 mmol/L (21-32)
--- NOTE | 2017-02-20 07:10 | NUR ---
RN NOTES PT IS SITTING UP IN BED, A/OX4. PT ON RA, RESPIRATIONS ARE EVEN AND UNLABORED. IV ON RFA INTACT AND PATENT, RUNNING NS @75ML/HR. SAFETY MEASURES ARE IN PLACE, CALL LIGHT IS IN REACH. WILL CONTINUE TO MONITOR.
[2017-02-20] MEDS: MECLIZINE HCL 25 MG TABLET PO SCH ×2 (08:06→16:48)
[2017-02-20] MEDS: CIPROFLOXACIN HCL 250 MG TABLET PO SCH ×2 (08:06→20:25)
[2017-02-20] MEDS: FLUDROCORTISONE 0.1 MG TABLET PO SCH (08:07)
[2017-02-20] MEDS: FOLIC ACID 1 MG TABLET PO SCH (08:07)
[2017-02-20] MEDS: CLOPIDOGREL BISULFATE 75 MG TABLET PO SCH (08:07)
[2017-02-20] MEDS: METFORMIN XR 500 MG TAB.SR.24H PO SCH (08:07)
[2017-02-20] MEDS: predniSONE 10 MG TABLET PO SCH (08:07)
[2017-02-20] MEDS: FERROUS SULFATE (325 MG) 325 MG/TAB TABLET PO SCH (08:07)
[2017-02-20 15:06] LABS: APPEARANCE,URINE CLEAR (CLEAR); BILIRUBIN,URINE NEGATIVE (NEGATIVE); BLOOD, URINE NEGATIVE Ery/uL (NEGATIVE); COLOR,URINE YELLOW (YELLOW); KETONES,URINE NEGATIVE (NEGATIVE); LEUKOCYTE ESTERASE ,URINE NEGATIVE (NEGATIVE); NITRITE, URINE NEGATIVE (NEGATIVE); PROTEIN,URINE NEGATIVE (NEGATIVE); UGLUCOSE NEGATIVE (NEGATIVE); UROBILINOGEN,URINE 0.2 EU/dL (0.2)
--- NOTE | 2017-02-20 18:26 | NUR ---
RN NOTES PT IS IN BED, RESTING COMFORTABLY WITH FAMILY AT BEDSIDE. PT ON RA, RESPIRATIONS ARE EVEN AND UNLABORED. IV ON LFA INTACT AND PATENT, RUNNING NS @ 75 ML/HR. ALL MEDS WERE GIVEN ORDERED. PT NEEDS MET. DAUGHTER (TONY) SPOKE WITH CASE MANAGEMENT ABOUT POSSIBLE TRANSFER TO [facility]. SAFETY MEASURES ARE IN PLACE, CALL LIGHT IS IN REACH. WILL ENDORSE TO WOUND CARE PHYSICIAN RN FOR CONTINUITY OF CARE.
--- NOTE | 2017-02-20 19:30 | NUR ---
RN NOTES RECEIVED PATIENT IN BED AWAKE, AO X 3, ABLE TO MAKE NEEDS KNOWN. NO ACUTE DISTRESS NOTED. DENIES ANY PAIN AT THIS TIME. IV SITE PATENT, INTACT; IVF INFUSING ORDERED. SAFETY REMINDERS GIVEN. ON LOW BED WITH BILATERAL UPPER SIDE RAILS UP. CALL LIGHT WITHIN EASY REACH. WILL CONTINUE TO MONITOR.
[2017-02-20] MEDS: TAMSULOSIN 0.4 MG CAP.SR.24H PO SCH (20:25)
[2017-02-21] MEDS: IV NS 0.9% 1,000 ML IV PRN (05:24)
--- NOTE | 2017-02-21 06:14 | NUR ---
RN NOTES PATIENT ASLEEP, EASILY AROUSABLE. RESPIRATIONS EVEN. NO SIGNS OF PAIN NOTED. DUE MEDS GIVEN WITH NO ASE NOTED. NEEDS ATTENDED. SAFETY PRECAUTIONS AND COMFORT MEASURES IN PLACE. WILL GIVE REPORT TO DAY SHIFT FOR CONTINUITY OF CARE.
[2017-02-21 06:47] LABS: BASOPHILS % (AUTO) 0.4 % (0.0-2.0); HEMATOCRIT 23 % (39-51); HEMOGLOBIN 7.9 g/dL (13.5-17.5); LYMPHOCYTES # (AUTO) 1.1 /CMM (0.8-4.8); MEAN CORPUSCULAR HEMOGLOBIN 31 PG (26.0-33.0); MEAN CORPUSCULAR HGB CONC 35 g/dl (31.0-36.0); MEAN CORPUSCULAR VOLUME 90 fL (80-96); MONOCYTES # (AUTO) 0.4 /CMM (0.1-1.30); MONOCYTES % (AUTO) 12.5 % (2.0-12.0); NEUTROPHILS # (AUTO) 1.8 /CMM (1.8-8.9); NEUTROPHILS % (AUTO) 53.1 % (43.0-81.0); PLATELET COUNT (AUTO) 236 /CMM (150-450); RDW COEFFICIENT OF VARIATION 25.4 (11.5-15.0); RED BLOOD CELL COUNT(AUTO) 2.54 MIL/uL (4.5-6.0); WHITE BLOOD COUNT (AUTO) 3.4 K/uL (4.3-11.0)
[2017-02-21 07:02] LABS: CALCIUM, SERUM 8.2 mg/dL (8.5-10.1); CARBON DIOXIDE 21 mmol/L (21-32); CHLORIDE 111 mmol/L (98-107); CREATININE 0.8 mg/dL (0.6-1.3); GLUCOSE 91 mg/dL (74-106); POTASSIUM 3.4 mmol/L (3.5-5.1); SODIUM SERUM 143 mmol/L (136-145); UREA NITROGEN, BLOOD 10 mg/dL (7-18)
--- NOTE | 2017-02-21 07:05 | NUR ---
RN NOTE PT IS SITTING UP IN BED, RESTING COMFORTABLY, AWAKE AND ALERT. PT ON RA, RESPIRATIONS ARE EVEN AND UNLABORED. IV ON LFA INTACT AND PATENT, RUNNING NS @ 75ML/HR. SAFETY MEASURES ARE IN PLACE, CALL LIGHT IS IN REACH. WILL CONTINUE TO MONITOR.
[2017-02-21 08:00] VITALS: BP 103/56
[2017-02-21 08:13] VITALS: BP 103/94
[2017-02-21] MEDS: CLOPIDOGREL BISULFATE 75 MG TABLET PO SCH (08:15)
[2017-02-21] MEDS: FERROUS SULFATE (325 MG) 325 MG/TAB TABLET PO SCH (08:15)
[2017-02-21] MEDS: METFORMIN XR 500 MG TAB.SR.24H PO SCH (08:15)
[2017-02-21] MEDS: predniSONE 10 MG TABLET PO SCH (08:15)
[2017-02-21] MEDS: FOLIC ACID 1 MG TABLET PO SCH (08:15)
[2017-02-21] MEDS: MECLIZINE HCL 25 MG TABLET PO SCH ×2 (08:15→16:01)
[2017-02-21] MEDS: CIPROFLOXACIN HCL 250 MG TABLET PO SCH ×2 (08:15→20:04)
[2017-02-21] MEDS: FLUDROCORTISONE 0.1 MG TABLET PO SCH (08:23)
[2017-02-21 16:00] VITALS: BP 118/63
[2017-02-21 16:52] VITALS: BP 118/63
--- NOTE | 2017-02-21 18:33 | NUR ---
RN NOTES PT IS IN BED, SITTING COMFORTABLY WITH FAMILY AT BEDSIDE. PT ON RA, RESPIRATIONS ARE EVEN AND UNLABORED. IV ON LFA INTACT AND PATENT, SL. ALL MEDS WERE GIVEN ORDERED. ALL PT NEEDS MET. PT HAS WALKER AT BEDSIDE, PER FAMILY REQUEST. DR. ANDINO PUT IN PODIATRY CONSULT FOR PT, PER FAMILY REQUEST. SAFETY MEASURES ARE IN PLACE, CALL LIGHT IS IN REACH. WILL ENDORSE TO HAND STEMMER RN FOR CONTINUITY OF CARE.
--- NOTE | 2017-02-21 19:30 | NUR ---
RN NOTES RECEIVED PATIENT IN BED AWAKE, AO X 3, ABLE TO MAKE NEEDS KNOWN. NO ACUTE DISTRESS NOTED. DENIES ANY PAIN AT THIS TIME. IV SITE PATENT, INTACT; FLUSHED. SAFETY REMINDERS GIVEN. ON LOW BED WITH BILATERAL UPPER SIDE RAILS UP. CALL LIGHT WITHIN EASY REACH. WILL CONTINUE TO MONITOR.
[2017-02-21 20:00] VITALS: BP 116/62
[2017-02-21] MEDS: TAMSULOSIN 0.4 MG CAP.SR.24H PO SCH (20:03)
[2017-02-21 20:34] VITALS: BP 116/62
[2017-02-22 06:34] LABS: BASOPHILS % (AUTO) 0.4 % (0.0-2.0); EOSINOPHILS % (AUTO) 0.9 % (0.0-6.0); HEMATOCRIT 23 % (39-51); HEMOGLOBIN 7.9 g/dL (13.5-17.5); LYMPHOCYTES # (AUTO) 1.3 /CMM (0.8-4.8); LYMPHOCYTES % (AUTO) 34.1 % (20.0-44.0); MEAN CORPUSCULAR HEMOGLOBIN 31 PG (26.0-33.0); MEAN CORPUSCULAR HGB CONC 34 g/dl (31.0-36.0); MEAN CORPUSCULAR VOLUME 92 fL (80-96); MONOCYTES # (AUTO) 0.5 /CMM (0.1-1.30); MONOCYTES % (AUTO) 13.7 % (2.0-12.0); NEUTROPHILS # (AUTO) 1.9 /CMM (1.8-8.9); NEUTROPHILS % (AUTO) 50.9 % (43.0-81.0); PLATELET COUNT (AUTO) 228 /CMM (150-450); RDW COEFFICIENT OF VARIATION 25.4 (11.5-15.0); RED BLOOD CELL COUNT(AUTO) 2.52 MIL/uL (4.5-6.0); WHITE BLOOD COUNT (AUTO) 3.7 K/uL (4.3-11.0)
--- NOTE | 2017-02-22 06:40 | NUR ---
RN NOTES PATIENT ASLEEP, EASILY AROUSABLE. RESPIRATIONS EVEN. NO SIGNS OF PAIN NOTED. DUE MEDS GIVEN WITH NO ASE NOTED. NEEDS ATTENDED. BP WNL. SAFETY PRECAUTIONS AND COMFORT MEASURES IN PLACE. WILL GIVE REPORT TO DAY SHIFT FOR CONTINUITY OF CARE.
[2017-02-22 06:47] LABS: CALCIUM, SERUM 8.4 mg/dL (8.5-10.1); CARBON DIOXIDE 25 mmol/L (21-32); CHLORIDE 110 mmol/L (98-107); CREATININE 0.8 mg/dL (0.6-1.3); GLUCOSE 89 mg/dL (74-106); SODIUM SERUM 143 mmol/L (136-145); UREA NITROGEN, BLOOD 12 mg/dL (7-18)
[2017-02-22 08:00] VITALS: BP 97/59
--- NOTE | 2017-02-22 08:00 | NUR ---
MS/RN OPENING NOTE PATIENT RECEIVED IN BED IN STABLE CONDITION. A/O X 4. NO SIGNS OF ACUTE DISTRESS. NO COMPLAIN OF PAIN OR DISCOMFORT. IV FLUIDS ON HOLD AT THIS TIME TO MONITOR BP IF IT DROPS WITHOUT IV FLUID. BP NOTED IN HIGH 90'S TO 100'S PER BI SPECIALIST. ALL NEEDS ATTENDED AT THIS TIME. CALL LIGHT WITHIN REACH. WILL CONTINUE TO MONITOR TO ENSURE SAFETY.
[2017-02-22] MEDS: FLUDROCORTISONE 0.1 MG TABLET PO SCH (08:47)
[2017-02-22] MEDS: FOLIC ACID 1 MG TABLET PO SCH (08:47)
[2017-02-22] MEDS: MECLIZINE HCL 25 MG TABLET PO SCH ×2 (08:47→16:56)
[2017-02-22] MEDS: METFORMIN XR 500 MG TAB.SR.24H PO SCH (08:47)
[2017-02-22] MEDS: CLOPIDOGREL BISULFATE 75 MG TABLET PO SCH (08:47)
[2017-02-22] MEDS: FERROUS SULFATE (325 MG) 325 MG/TAB TABLET PO SCH (08:47)
[2017-02-22] MEDS: predniSONE 10 MG TABLET PO SCH (08:47)
[2017-02-22] MEDS: CIPROFLOXACIN HCL 250 MG TABLET PO SCH ×2 (08:47→20:47)
--- NOTE | 2017-02-22 09:44 | NUR ---
MS/RN BLOOD TRANSFUSION HELD RECEIVED ORDER FROM DR CORTES FOR BLOOD TRANSFUSION, SPOKE WITH DAUGHTER TONY PER DAUGHTER TONY, SHE DOESN'T WANT HER FATHER TO HAVE BLOOD TRANSFUSION UNLESS HGB IS <7, ALSO REQUESTING FOR EPOGEN ORDER FIRST. SPOKE WITH DR ANDINO AND MADE AWARE. PER DR ANDINO HOLD THE ORDER FOR BLOOD TRANSFUSION TILL HE SPEAKS WITH DAUGHTER TONY.
--- NOTE | 2017-02-22 10:45 | NUR ---
/RN RECEIVED CALL FROM DR ANDINO RECEIVED CALL FROM DR ANDINO. PER DR ANDINO HOLD BLOOD TRANSFUSION ORDER SECONDARY TO PATIENT'S DAUGHTER REQUESTING TO HOLD. PER DR ANDINO WAIT TILL FURTHER ORDER FOR TRANSFUSION.
--- NOTE | 2017-02-22 14:30 | NUR ---
MS/RN SPOKE WITH DR ANDINO STILL CONTINUE TO HOLD BLOOD TRANSFUSION PER FAMILY REQUEST.
[2017-02-22 16:00] VITALS: BP 93/53
--- NOTE | 2017-02-22 18:34 | NUR ---
MS/RN CLOSING NOTE PATIENT IN BED IN STABLE CONDITION. A/O X 4. NO SIGNS OF ACUTE DISTRESS. NO COMPLAIN OF PAIN OR DISCOMFORT. CONTINUE TO HOLD BLOOD TRANSFUSION TILL FURTHER ORDER PER DR ANDINO. ALL NEEDS ATTENDED TO. CALL LIGHT WITHIN REACH. WILL ENDORSE TO NEXT SHIFT FOR CONTINUITY OF CARE.
[2017-02-22] MEDS: TAMSULOSIN 0.4 MG CAP.SR.24H PO SCH (20:47)
[2017-02-23] VITALS: BP 107/71
--- NOTE | 2017-02-23 05:57 | NUR ---
Hardly slept was up several times to go to br.,But no c/o.
[2017-02-23 07:49] LABS: CALCIUM, SERUM 8.4 mg/dL (8.5-10.1); CARBON DIOXIDE 24 mmol/L (21-32); CHLORIDE 108 mmol/L (98-107); CREATININE 0.8 mg/dL (0.6-1.3); GLUCOSE 91 mg/dL (74-106); POTASSIUM 3.6 mmol/L (3.5-5.1); SODIUM SERUM 142 mmol/L (136-145); UREA NITROGEN, BLOOD 12 mg/dL (7-18)
[2017-02-23 07:52] LABS: HEMATOCRIT 24 % (39-51); HEMOGLOBIN 8.2 g/dL (13.5-17.5); MEAN CORPUSCULAR HEMOGLOBIN 31 PG (26.0-33.0); MEAN CORPUSCULAR HGB CONC 34 g/dl (31.0-36.0); MEAN CORPUSCULAR VOLUME 92 fL (80-96); RDW COEFFICIENT OF VARIATION 25.3 (11.5-15.0); RED BLOOD CELL COUNT(AUTO) 2.63 MIL/uL (4.5-6.0); WHITE BLOOD COUNT (AUTO) 4.4 K/uL (4.3-11.0)
[2017-02-23 07:53] LABS: BASOPHILS % (AUTO) 0.2 % (0.0-2.0); EOSINOPHILS % (AUTO) 0.5 % (0.0-6.0); LYMPHOCYTES # (AUTO) 1.3 /CMM (0.8-4.8); LYMPHOCYTES % (AUTO) 28.6 % (20.0-44.0); MONOCYTES # (AUTO) 0.5 /CMM (0.1-1.30); MONOCYTES % (AUTO) 10.9 % (2.0-12.0); NEUTROPHILS # (AUTO) 2.6 /CMM (1.8-8.9); NEUTROPHILS % (AUTO) 59.8 % (43.0-81.0); PLATELET COUNT (AUTO) 225 /CMM (150-450)
[2017-02-23 08:00] VITALS: BP 136/72
--- NOTE | 2017-02-23 08:22 | NUR ---
RN MS NOTES PT RESTING IN BED. NO APPARENT S/S OF PAIN OR DISTRESS AT THIS TIME. WILL CONTINUE TO MONITOR. CALL LIGHT WITHIN REACH.
[2017-02-23] MEDS: FOLIC ACID 1 MG TABLET PO SCH (08:52)
[2017-02-23] MEDS: CLOPIDOGREL BISULFATE 75 MG TABLET PO SCH (08:52)
[2017-02-23] MEDS: MECLIZINE HCL 25 MG TABLET PO SCH (08:52)
[2017-02-23] MEDS: METFORMIN XR 500 MG TAB.SR.24H PO SCH (08:52)
[2017-02-23] MEDS: FLUDROCORTISONE 0.1 MG TABLET PO SCH (08:52)
[2017-02-23] MEDS: predniSONE 10 MG TABLET PO SCH (08:52)
[2017-02-23] MEDS: CIPROFLOXACIN HCL 250 MG TABLET PO SCH (08:52)
[2017-02-23] MEDS: FERROUS SULFATE (325 MG) 325 MG/TAB TABLET PO SCH (08:52)
--- NOTE | 2017-02-23 12:23 | NUR ---
RN MS NOTES PT LEFT UNIT AT 12:00. PT AND FAMILY GIVEN DISCHARGE INSTRUCTIONS. VERBALLY STATED UNDERSTANDING. GIVEN ALL DISCHARGE PAPERWORK. PT WILL FOLLOW UP WITH DR CORTES. ALL PT BELONGINGS TAKEN WITH THE PATIENT AND FAMILY. PT STABLE AT DC. AMBULATED OFF THE UNIT ALONG WITH FAMILY MEMBERS. PT GIVEN IMAGING CD.
== END 2017-02-23 12:05 | disposition home or self-care (01) | DRG 424 ==
LOC: ER 11:54 → TELE 15:08 → MED 02-18 12:44 → TELE 02-19 18:57 → MED 02-20 08:45
PROVIDERS: ADMIT Internal Medicine; ATTEND Internal Medicine
DX: E27.40 Unspecified adrenocortical insufficiency (principal); N17.0 Acute kidney failure with tubular necrosis; E87.2 Acidosis; D61.818 Other pancytopenia; C77.9 Secondary and unspecified malignant neoplasm of lymph node, unspecified; C34.90 Malignant neoplasm of unspecified part of unspecified bronchus or lung; D69.6 Thrombocytopenia, unspecified; F03.90 Unspecified dementia, unspecified severity, without behavioral disturbance, psychotic disturbance, mood disturbance, and anxiety; E11.51 Type 2 diabetes mellitus with diabetic peripheral angiopathy without gangrene; D63.8 Anemia in other chronic diseases classified elsewhere; E11.65 Type 2 diabetes mellitus with hyperglycemia; I25.2 Old myocardial infarction; Z79.02 Long term (current) use of antithrombotics/antiplatelets; Z85.118 Personal history of other malignant neoplasm of bronchus and lung; Z95.5 Presence of coronary angioplasty implant and graft; I25.10 Atherosclerotic heart disease of native coronary artery without angina pectoris; I70.0 Atherosclerosis of aorta; Z79.82 Long term (current) use of aspirin; Z92.21 Personal history of antineoplastic chemotherapy; Z79.899 Other long term (current) drug therapy; E86.0 Dehydration; D72.819 Decreased white blood cell count, unspecified; T45.1X5A Adverse effect of antineoplastic and immunosuppressive drugs, initial encounter; Y92.009 Unspecified place in unspecified non-institutional (private) residence as the place of occurrence of the external cause; N39.0 Urinary tract infection, site not specified; N40.0 Benign prostatic hyperplasia without lower urinary tract symptoms; E44.1 Mild protein-calorie malnutrition; I11.9 Hypertensive heart disease without heart failure
CPT/HCPCS: 36415; 71010-TC; 76700-TC; 78582; 80048-TC; 80053-TC; 80061-TC; 80076-TC; 81000-TC; 82088; 82533; 82962-TC; 83605-TC; 83735-TC; 83880; 83935-TC; 84100-TC; 84300-TC; 84443-TC; 84484-TC; 85025-TC; 85396; 85730-TC; 86850-TC; 86921-TC; 87040-TC; 87081-TC; 87086-TC; 93970-TC; A4606; A9540; A9567; J2270; J2405; J7030; J8597; Z7610